=== PATIENT | male | born 1980 | race Caucasian/White ===

== ENCOUNTER → 2018-08-28 16:59 | Outpatient (CLI) | payer OTHER, SELFPAY ==
--- OUTSIDE RECORDS SUMMARY | 2018-10-10 16:20 | XMS RPT_ITS ---
:1980 Author Organization [facility] Care Team Providers Name Role Phone JOESPH CHERY (ABSORPTION PLANT OPERATOR HELPER) Attending Unavailable ISAIAH VARGAS Attending Unavailable RADHA GARG (DRESSAGE INSTRUCTOR) Attending Unavailable TALAMPAS, MARIELLA D Attending Unavailable TALAMPAS, MARIELLA D Attending Unavailable TALAMPAS, MARIELLA D Referring Unavailable TALAMPAS, MARIELLA D Referring Unavailable OLDER, OLGA (ABSORPTION PLANT OPERATOR HELPER) Attending Unavailable OLDER, OLGA (ABSORPTION PLANT OPERATOR HELPER) Attending Unavailable OLDER, OLGA (ABSORPTION PLANT OPERATOR HELPER) Referring Unavailable Bro, Jose Attending Unavailable Bro, Jose Referring Unavailable PROBLEMS PROBLEMS DATE TYPE CONDITION / CODE ATTENDING STATUS SOURCE 06/30/2018 Active Other custodial NA Active [facility] (current) drug [place] therapy / Repository Z79.899(ICD-10) 06/30/2018 Active Encounter for NA Active [facility] general adult [place] medical Repository examination without abnormal findings / Z00.00(ICD-10) 06/30/2018 Active Encounter for NA Active [facility] screening for [place] diabetes mellitus Repository / Z13.1(ICD-10) 06/30/2018 Active Encounter for NA Active [facility] screening for [place] lipoid disorders / Repository Z13.220(ICD-10) 09/07/2012 Active Obsessive-compulsi TALAMPAS, MARIELLA Active [facility] ve disorder, D [place] unspecified / Repository F42.9(ICD-10) 04/18/2018 Active Elevated TALAMPAS, MARIELLA Active [facility] blood-pressure D [place] reading, without Repository diagnosis of hypertension / R03.0(ICD-10) 04/18/2018 Active Episodic TALAMPAS, MARIELLA Active [facility] tension-type D [place] headache, not Repository intractable / G44.219(ICD-10) PROCEDURES PROCEDURES No Procedure Records FoundRESULTS RESULTS PROGRESS Observed: 09/19/2018 Status: COMPLETED Source: [place] 9:01 AM [facility] REPOSITORY HNO ID: [id number] Author: Olga (Solomon) Older Service: (none) Author Type: Nurse Practitioner Type: Progress Notes Filed: 09/19/2018 9:05 AM Note Text: CC: Patient presents with: 1 week follow up HPI Selene Snowden is a 38 year old male who presents today for one week follow-up for Shingles. Diagnosed last week and treated with Valtrex and Prednisone. Today patient reports rash has improved quite a bit and not as painful. Does report muscle tightness and cramping of the trapezius muscles. Tylenol helps a little with the pain but does not help with muscle tightness. REVIEW OF SYSTEMS See HPI PAST MEDICAL HISTORY Diagnosis Date - Hiatal hernia 08/14 - Obsessive compulsive disorder - Obstructive sleep apnea on CPAP - Sleep apnea PAST SURGICAL HISTORY Procedure Laterality Date - COLONOSCOPY 08/14 [place] - normal results - ENDOSCOPY PROC 08/14 [place] ALLERGIES Patient has no known allergies. MEDICATIONS busPIRone (BUSPAR) 10 mg tablet Take 1 tablet by mouth twice daily. As directed CPAP Initiate Auto PAP @ 5-20 cm of water with humidification. Mask (per patient preference) optional chin strap (if indicated) , filters, tubing, humidifier and lifetime supplies. (G47.33) SILVANO (obstructive sleep apnea) FLUoxetine HCl (PROZAC) 40 mg capsule Take 1 capsule by mouth once daily. fluticasone (FLONASE) 50 mcg/actuation nasal spray Use 1 Alicia in each nostril once daily. ibuprofen (ADVIL) 200 mg tablet Take 200 mg by mouth every 6 hours as needed. Lysine 1,000 mg Tab Take 1 tablet by mouth once daily. multivitamin tablet Take 1 tablet by mouth once daily. pantoprazole DR (PROTONIX) 40 mg tablet Take 1 tablet by mouth once daily. predniSONE (DELTASONE) 10 mg tablet Take 4 tabs daily for 3 days, then 2 tabs daily for 3 days, then 1 tab daily for 3 days with food. valACYclovir (VALTREX) 1 gram tab Take 1 tablet by mouth three times daily for 7 days. cyclobenzaprine (FLEXERIL) 10 mg tablet Take 1 tablet by mouth three times daily as needed. FAMILY HISTORY Problem Relation Age of Onset - Psychiatry Father schizoprhenia - Heart Failure Father - Psychiatry Mother - other (obesity [Other]) Mother - Diabetes Mother - Heart Mother atrial fibrillation - Colon Cancer Maternal Grandmother - Diabetes Maternal Grandmother - Cancer Maternal Uncle stomach and throat. - Diabetes Maternal Uncle Social History Substance Use Topics - Smoking status: Never Smoker - Smokeless tobacco: Never Used - Alcohol use Yes Comment: occassionally PHYSICAL EXAM BP 120/80 Pulse 77 Temp 36.5 ?C (97.7 ?F) (Temporal Artery) Resp 14 Wt 115.2 kg (254 lb) SpO2 97% BMI 36.45 kg/m? General Appearance: well appearing, in no acute distress, alert Skin: Left posterior shoulder and left chest wall with scattered dry appearing red papules. No drainage, crusting. No tenderness. Musculoskeletal: tenderness with palpation of bilateral trapezius muscles. ASSESSMENT/PLAN: 1. Herpes zoster without complication - ICD9: 053.9, ICD10: B02.9 (primary diagnosis) Normal healing. No alarm symptoms or exam findings. Continue with Tylenol as needed for pain Follow-up as needed if rash or pain worsens 2. Muscle cramping - ICD9: 729.82, ICD10: R25.2 Start Flexeril Follow-up in two weeks if pain persists or sooner if worsening Olga Burgos APRN.CNP Prescription instructions reviewed with patient as applicable. Potential red flag symptoms discussed with the patient. Reviewed appropriate action plan to take if red flag symptoms occur. Patient agreeable to treatment plan. ALDO BlackOV Observed: 09/19/2018 Status: COMPLETED Source: [place] 8:40 AM [facility] REPOSITORY Office Visit (INTMWS) SELENE SNOWDEN ([id number]) 1980 M Date Time Provider Department 09/19/18 8:40 AM OLGA BURGOS ([place]OM[place]) INTArtWS During your visit today, we recorded the following information about you: Temperature Pulse Respiration Blood pressure 97.7 degrees 77/minute 14/minute 120/80 Weight 115.2 kg Olga Older, MANAGER TRAFFIC.ABSORPTION PLANT OPERATOR HELPER 09/19/2018 9:05 AM Signed CC: Patient presents with: 1 week follow up HPI Selene Snowden is a 38 year old male who presents today for one week follow-up for Shingles. Diagnosed last week and treated with Valtrex and Prednisone. Today patient reports rash has improved quite a bit and not as painful. Does report muscle tightness and cramping of the trapezius muscles. Tylenol helps a little with the pain but does not help with muscle tightness. REVIEW OF SYSTEMS See HPI PAST MEDICAL HISTORY Diagnosis Date - Hiatal hernia 08/14 - Obsessive compulsive disorder - Obstructive sleep apnea on CPAP - Sleep apnea PAST SURGICAL HISTORY Procedure Laterality Date - COLONOSCOPY 08/14 [place] - normal results - ENDOSCOPY PROC 08/14 [place] ALLERGIES Patient has no known allergies. MEDICATIONS busPIRone (BUSPAR) 10 mg tablet Take 1 tablet by mouth twice daily. As directed CPAP Initiate Auto PAP @ 5-20 cm of water with humidification. Mask (per patient preference) optional chin strap (if indicated) , filters, tubing, humidifier and lifetime supplies. (G47.33) SILVANO (obstructive sleep apnea) FLUoxetine HCl (PROZAC) 40 mg capsule Take 1 capsule by mouth once daily. fluticasone (FLONASE) 50 mcg/actuation nasal spray Use 1 Alicia in each nostril once daily. ibuprofen (ADVIL) 200 mg tablet Take 200 mg by mouth every 6 hours as needed. Lysine 1,000 mg Tab Take 1 tablet by mouth once daily. multivitamin tablet Take 1 tablet by mouth once daily. pantoprazole DR (PROTONIX) 40 mg tablet Take 1 tablet by mouth once daily. predniSONE (DELTASONE) 10 mg tablet Take 4 tabs daily for 3 days, then 2 tabs daily for 3 days, then 1 tab daily for 3 days with food. valACYclovir (VALTREX) 1 gram tab Take 1 tablet by mouth three times daily for 7 days. cyclobenzaprine (FLEXERIL) 10 mg tablet Take 1 tablet by mouth three times daily as needed. FAMILY HISTORY Problem Relation Age of Onset - Psychiatry Father schizoprhenia - Heart Failure Father - Psychiatry Mother - other (obesity [Other]) Mother - Diabetes Mother - Heart Mother atrial fibrillation - Colon Cancer Maternal Grandmother - Diabetes Maternal Grandmother - Cancer Maternal Uncle stomach and throat. - Diabetes Maternal Uncle Social History Substance Use Topics - Smoking status: Never Smoker - Smokeless tobacco: Never Used - Alcohol use Yes Comment: occassionally PHYSICAL EXAM BP 120/80 Pulse 77 Temp 36.5 ?C (97.7 ?F) (Temporal Artery) Resp 14 Wt 115.2 kg (254 lb) SpO2 97% BMI 36.45 kg/m? General Appearance: well appearing, in no acute distress, alert Skin: Left posterior shoulder and left chest wall with scattered dry appearing red papules. No drainage, crusting. No tenderness. Musculoskeletal: tenderness with palpation of bilateral trapezius muscles. ASSESSMENT/PLAN: 1. Herpes zoster without complication - ICD9: 053.9, ICD10: B02.9 (primary diagnosis) Normal healing. No alarm symptoms or exam findings. Continue with Tylenol as needed for pain Follow-up as needed if rash or pain worsens 2. Muscle cramping - ICD9: 729.82, ICD10: R25.2 Start Flexeril Follow-up in two weeks if pain persists or sooner if worsening Olga Burgos APRN.[place] Prescription instructions reviewed with patient as applicable. Potential red flag symptoms discussed with the patient. Reviewed appropriate action plan to take if red flag symptoms occur. Patient agreeable to treatment plan. Olga Burgos APRN.CNP Referring Provider: OLGA BURGOS ([place]) [[id number]] Allergies As of Date: 09/19/2018 (No Known Allergies) Date Reviewed: 09/19/2018 Reviewed by: Briseyda Adams Teacher Vocational Training - Fully Assessed Reason for Visit: 1 week follow up [Other] Primary Visit Diagnosis:Herpes zoster without complication [B02.9] Other Visit Diagnosis:Muscle cramping [R25.2] Order(s):cyclobenzaprine (FLEXERIL) 10 mg tabletTake 1 tablet by mouth three times daily as needed.Disp: 21 tabletRfl: 0 Prescriptions as of 09/19/2018 Sig: BUSPIRONE 10 MG TABLET Take 1 tablet by mouth twice * CPAP Initiate Auto PAP @ 5- 20 cm o* FLUOXETINE 40 MG CAPSULE Take 1 capsule by mouth once * FLUTICASONE 50 MCG/ACTUATION * Use 1 Alicia in each nostril o* IBUPROFEN 200 MG TABLET Take 200 mg by mouth every 6 * LYSINE 1,000 MG TABLET Take 1 tablet by mouth once d* MULTIVITAMIN TABLET Take 1 tablet by mouth once d* PANTOPRAZOLE 40 MG TABLET,DEL* Take 1 tablet by mouth once d* PREDNISONE 10 MG TABLET Take 4 tabs daily for 3 days,* VALACYCLOVIR 1 GRAM TABLET Take 1 tablet by mouth three * CYCLOBENZAPRINE 10 MG TABLET Take 1 tablet by mouth three * Problem List As Of Date 09/19/2018 Noted Resolved OCD (obsessive compulsive disorder) [F42.9] INVALID FOR* Palpitations [R00.2] INVALID FOR* Chest pain [R07.9] INVALID FOR* More... SILVANO (obstructive sleep apnea) [G47.33] INVALID FOR* Anxiety [F41.9] INVALID FOR* Prescriptions ordered this encounter Disp Refills Start End CYCLOBENZAPRINE 10 MG TABLET 21 t* 0 09/19/2018 Route: ORAL Sig: Take 1 tablet by mouth three times daily as needed. Encounter Status:Closed by OLGA BURGOS CNP on 09/19/18 PROGRESS Observed: 09/12/2018 Status: COMPLETED Source: [place] 8:53 AM [facility] REPOSITORY O ID: [id number] Author: Olga Burgos Service: (none) Author Type: Nurse Practitioner Type: Progress Notes Filed: 09/12/2018 9:53 AM Note Text: CC: Patient presents with: rash left shoulder and left side of chest: x 3 days HPI Selene Snowden is a 38 year old male who presents today for rash. Duration: first noticed Tuesday evening Location: left anterior and posterior shoulder Itching or Pain: Itchy and burning pain . Ever had a rash like this before: No. Changes in soaps or detergents: No. New medications or foods: . Exposure to others with rash: No. Environmental exposures: No Environmental/seasonal allergies: No Fever, chills, fatigue, joint pain/swelling: A few days prior to rash starting he had chills and diarrhea, has been feeling fatigued ever since. Treatments: Nothing History of skin problems such as psoriasis, eczema, hives: No. PAST MEDICAL HISTORY Diagnosis Date - Hiatal hernia 08/14 - Obsessive compulsive disorder - Obstructive sleep apnea on CPAP - Sleep apnea PAST SURGICAL HISTORY Procedure Laterality Date - COLONOSCOPY 08/14 [place] - normal results - ENDOSCOPY PROC 08/14 [place] ALLERGIES Patient has no known allergies. MEDICATIONS busPIRone (BUSPAR) 10 mg tablet Take 1 tablet by mouth twice daily. As directed CPAP Initiate Auto PAP @ 5-20 cm of water with humidification. Mask (per patient preference) optional chin strap (if indicated) , filters, tubing, humidifier and lifetime supplies. (G47.33) SILVANO (obstructive sleep apnea) FLUoxetine HCl (PROZAC) 40 mg capsule Take 1 capsule by mouth once daily. fluticasone (FLONASE) 50 mcg/actuation nasal spray Use 1 Alicia in each nostril once daily. ibuprofen (ADVIL) 200 mg tablet Take 200 mg by mouth every 6 hours as needed. Lysine 1,000 mg Tab Take 1 tablet by mouth once daily. multivitamin tablet Take 1 tablet by mouth once daily. pantoprazole DR (PROTONIX) 40 mg tablet Take 1 tablet by mouth once daily. FAMILY HISTORY Problem Relation Age of Onset - Psychiatry Father schizoprhenia - Heart Failure Father - Psychiatry Mother - other (obesity [Other]) Mother - Diabetes Mother - Heart Mother atrial fibrillation - Colon Cancer Maternal Grandmother - Diabetes Maternal Grandmother - Cancer Maternal Uncle stomach and throat. - Diabetes Maternal Uncle Social History Substance Use Topics - Smoking status: Never Smoker - Smokeless tobacco: Never Used - Alcohol use Yes Comment: occassionally REVIEW OF SYSTEMS See HPI PHYSICAL EXAM BP 130/80 Pulse 88 Temp 36.2 ?C (97.2 ?F) (Temporal Artery) Resp 14 Wt 116.1 kg (256 lb) SpO2 96% BMI 36.73 kg/m? General Appearance: well appearing, in no acute distress, alert Skin: red papules and vesicles on an erythematous base clustered in a dermatomal distribution on the left posterior shoulder to the left anterior chest/shoulder (see image) ASSESSMENT/PLAN: 1. Herpes zoster without complication - ICD9: 053.9, ICD10: B02.9 I discussed disease etiology, clinical symptoms, contagiousness and treatment options with patient. I also discussed the concept of post herpetic neuralgia. - Valtrex 1 gm TID for 7 days. - Prednisone burst with taper over 9 days - Advised pt to avoid women, young children, immunocompromised people, elderly residential patients while the vesicles are still unroofed and crusting over - Follow-up in one week or sooner as needed for worsening symptoms Prescription instructions reviewed with patient as applicable. Potential red flag symptoms discussed with the patient. Reviewed appropriate action plan to take if red flag symptoms occur. Patient agreeable to treatment plan. ALDO BlackOV Observed: 09/12/2018 Status: COMPLETED Source: [place] 8:40 AM [facility] REPOSITORY Office Visit (INTMWS) SNOWDENSELENE ([id number]) 1980 M Date Time Provider Department 09/12/18 8:40 AM OLGA BURGOS ([place]) INTMWS During your visit today, we recorded the following information about you: Temperature Pulse Respiration Blood pressure 97.2 degrees 88/minute 14/minute 130/80 Weight 116.1 kg Olga Burgos APRN.CNP 09/12/2018 9:53 AM Signed CC: Patient presents with: rash left shoulder and left side of chest: x 3 days HPI Selene Snowden is a 38 year old male who presents today for rash. Duration: first noticed Tuesday evening Location: left anterior and posterior shoulder Itching or Pain: Itchy and burning pain . Ever had a rash like this before: No. Changes in soaps or detergents: No. New medications or foods: . Exposure to others with rash: No. Environmental exposures: No Environmental/seasonal allergies: No Fever, chills, fatigue, joint pain/swelling: A few days prior to rash starting he had chills and diarrhea, has been feeling fatigued ever since. Treatments: Nothing History of skin problems such as psoriasis, eczema, hives: No. PAST MEDICAL HISTORY Diagnosis Date - Hiatal hernia 08/14 - Obsessive compulsive disorder - Obstructive sleep apnea on CPAP - Sleep apnea PAST SURGICAL HISTORY Procedure Laterality Date - COLONOSCOPY 08/14 [place] - normal results - ENDOSCOPY PROC 08/14 [place] ALLERGIES Patient has no known allergies. MEDICATIONS busPIRone (BUSPAR) 10 mg tablet Take 1 tablet by mouth twice daily. As directed CPAP Initiate Auto PAP @ 5-20 cm of water with humidification. Mask (per patient preference) optional chin strap (if indicated) , filters, tubing, humidifier and lifetime supplies. (G47.33) SILVANO (obstructive sleep apnea) FLUoxetine HCl (PROZAC) 40 mg capsule Take 1 capsule by mouth once daily. fluticasone (FLONASE) 50 mcg/actuation nasal spray Use 1 Alicia in each nostril once daily. ibuprofen (ADVIL) 200 mg tablet Take 200 mg by mouth every 6 hours as needed. Lysine 1,000 mg Tab Take 1 tablet by mouth once daily. multivitamin tablet Take 1 tablet by mouth once daily. pantoprazole DR (PROTONIX) 40 mg tablet Take 1 tablet by mouth once daily. FAMILY HISTORY Problem Relation Age of Onset - Psychiatry Father schizoprhenia - Heart Failure Father - Psychiatry Mother - other (obesity [Other]) Mother - Diabetes Mother - Heart Mother atrial fibrillation - Colon Cancer Maternal Grandmother - Diabetes Maternal Grandmother - Cancer Maternal Uncle stomach and throat. - Diabetes Maternal Uncle Social History Substance Use Topics - Smoking status: Never Smoker - Smokeless tobacco: Never Used - Alcohol use Yes Comment: occassionally REVIEW OF SYSTEMS See HPI PHYSICAL EXAM BP 130/80 Pulse 88 Temp 36.2 ?C (97.2 ?F) (Temporal Artery) Resp 14 Wt 116.1 kg (256 lb) SpO2 96% BMI 36.73 kg/m? General Appearance: well appearing, in no acute distress, alert Skin: red papules and vesicles on an erythematous base clustered in a dermatomal distribution on the left posterior shoulder to the left anterior chest/shoulder (see image) ASSESSMENT/PLAN: 1. Herpes zoster without complication - ICD9: 053.9, ICD10: B02.9 I discussed disease etiology, clinical symptoms, contagiousness and treatment options with patient. I also discussed the concept of post herpetic neuralgia. - Valtrex 1 gm TID for 7 days. - Prednisone burst with taper over 9 days - Advised pt to avoid women, young children, immunocompromised people, elderly residential patients while the vesicles are still unroofed and crusting over - Follow-up in one week or sooner as needed for worsening symptoms Prescription instructions reviewed with patient as applicable. Potential red flag symptoms discussed with the patient. Reviewed appropriate action plan to take if red flag symptoms occur. Patient agreeable to treatment plan. Olga Burgos, MANAGER TRAFFIC.ABSORPTION PLANT OPERATOR HELPER Referring Provider: SELF [[id number]] Allergies As of Date: 09/12/2018 (No Known Allergies) Date Reviewed: 09/12/2018 Reviewed by: Briseyda Adams Teacher Vocational Training - Fully Assessed Reason for Visit: rash left shoulder and left side of chest [Other] Cmt: x 3 days Primary Visit Diagnosis:Herpes zoster without complication [B02.9] Order(s):valACYclovir (VALTREX) 1 gram tabTake 1 tablet by mouth three times daily for 7 days.Disp: 21 tabletRfl: 0 predniSONE (DELTASONE) 10 mg tabletTake 4 tabs daily for 3 days, then 2 tabs daily for 3 days, then 1 tab daily for 3 days with food.Disp: 21 tabletRfl: 0 Prescriptions as of 09/12/2018 Sig: BUSPIRONE 10 MG TABLET Take 1 tablet by mouth twice * CPAP Initiate Auto PAP @ 5- 20 cm o* FLUOXETINE 40 MG CAPSULE Take 1 capsule by mouth once * FLUTICASONE 50 MCG/ACTUATION * Use 1 Alicia in each nostril o* IBUPROFEN 200 MG TABLET Take 200 mg by mouth every 6 * LYSINE 1,000 MG TABLET Take 1 tablet by mouth once d* MULTIVITAMIN TABLET Take 1 tablet by mouth once d* PANTOPRAZOLE 40 MG TABLET,DEL* Take 1 tablet by mouth once d* PREDNISONE 10 MG TABLET Take 4 tabs daily for 3 days,* VALACYCLOVIR 1 GRAM TABLET Take 1 tablet by mouth three * Problem List As Of Date 09/12/2018 Noted Resolved OCD (obsessive compulsive disorder) [F42.9] INVALID FOR* Palpitations [R00.2] INVALID FOR* Chest pain [R07.9] INVALID FOR* More... SILVANO (obstructive sleep apnea) [G47.33] INVALID FOR* Anxiety [F41.9] INVALID FOR* Prescriptions ordered this encounter Disp Refills Start End VALACYCLOVIR 1 GRAM TABLET 21 t* 0 09/12/2018 09/19/2018 Route: ORAL Sig: Take 1 tablet by mouth three times daily for 7 days. PREDNISONE 10 MG TABLET 21 t* 0 09/12/2018 09/21/2018 Sig: Take 4 tabs daily for 3 days, then 2 tabs daily for 3 days, then 1 tab daily for 3 days with food. Annotated image of DERM BODY last updated by Olga (Solomon) Older on 09/12/2018 9:50 AM Encounter Status:Closed by OLGA BURGOS CNP on 09/12/18 Observed: 08/28/2018 Status: F Source: [place] CULTURE, NOSE 6:10 PM [facility] REPOSITORY Gram Stain Gram Stain 2+ White Blood Cells 2+ Gram positive cocci in clusters Nasoph. Cult Amoxicillin/Clavulanic Acid and Oral Cephlosporins are the drugs of choice, as most isolates are penicillin resistant. Trimeth/Sulfa (Otitis), Ciprofloxacin, Ofloxacin and Erythromycin are alternate choices. ORGANISM 1: Moraxella(Hemal.)Catarrhalis Amount Growth 3+ Beta Lactamase Positive Performed By: #### [id number] #### [facility] [address] [place], [address] PROGRESS Observed: 08/07/2018 Status: COMPLETED Source: [place] 3:51 PM [facility] REPOSITORY HNO ID: [id number] Author: Charu Joyner Provider Service: (none) Author Type: Physician Type: Progress Notes Filed: 08/07/2018 10:54 AM Note Text: null (CCF:Not available [id number]) Visit Summary for Selene Snowden - Gender: Male - Date of : 1980 ( ) Date: [id number] - Duration: 3 minutes Patient: Selene Snowden Provider: Nehemiah Floyd Patient Contact Information [address] [facility] [facility] [id number] [phone] Visit Topics 10 days of sinus/cold issues now crackling in ears due to flight [Added By: Self - 2018-08-07] Triage Questions Please provide your current address. We need this on file in case of a medical emergency.Answer [[address] [place] [address]] Conversation Transcripts [Notification] You are connected with Nehemiah Floyd, Family Physician.[Notification] Selene Snowden is located in [place].[Notification] Selene Snowden has shared health history...[Notification] Nehemiah Floyd has added a diagnosis/procedure code (see the Visit Notes tab).[Notification] Nehemiah Floyd has added a diagnosis/procedure code (see the Visit Notes tab).[Notification] Nehemiah Floyd has added a prescription (see the Visit Notes tab). Diagnosis Acute sinusitis, unspecified Value: J01.90 Code: ICD-10-CM Procedures Value: [id number] Code: CPT-4 ONLINE E/M BY PHYS/QHP Medications Prescribed Augmentin Dose : 1 tablet Strength : 875-125 mg Route : oral Frequency : every 12 hours. Refills : 0 Instructions to the Pharmacist : Substitutions allowed BuSpar Frequency : Protonix Frequency : Prozac Frequency : Provider Notes We strongly encourage you to share the following record of today's visit with your primary care physician. Contact phone number:Mode of Communication: Video HPI: The patient has been having sinus pain, post nasal drip, discolored mucous for more than a week. No fever, no swollen glands or sore throat. There is a moderate cough but no shortness of breath. The patient has been achy and tired. PMH: Gastro-esophageal reflux disease without [id number] disorder, [id number] seasonal allergic rhinitisPSH: NoneSmoking HX: NonsmokerMeds: Lisine, MVNBuSpar----Protonix----ProzacAllergies: NKMAPE: Gen: Patient is well appearing and in no acute distress Eyes: Normal appearingNose: CongestedSinuses: Sinus tenderness bilaterallyPharynx: Normal appearing tonsils and posterior pharynxResp: No respiratory distressAssessment: Sinusitis Diagnosis Code: acute sinusitis NOS J01.90 Plan: 1.Medication as described below. 2.Discussed options and precautions3.Recommend nasal saline, Neti Pot, plain Mucinex4.Sleeping with head/chest elevated can help with sinus drainageAntibiotic indication: Continued symptoms over 1 weekAntibiotic choice: Augmentin 875mg 1 tab twice daily for 7 daysFollow up:1.Follow up in 5-7 days if not improving. Discussed precautions. 2.If there are any questions or problems with the prescription, call [phone] anytime for assistance. 3.Please re-connect for another online visit or see an in-person provider should your symptoms worsen or not improving 5-7days. 4.Taking a probiotic (either in pill form or by eating yogurt that contains probiotics) while using antibiotics can help prevent some of the troublesome side effects that antibiotics can sometimes cause.5.Please print a copy of this note and send it to your regular doctor, or take it to your next visit so it may be included in your medical record. Patient voiced understanding and agrees to plan.Please see your PCP on an annual basis Electronically signed by: Nehemiah Floyd( ) CBC Collected: 06/30/2018 Status: F Source: [place] 9:20 AM [facility] REPOSITORY TYPE CODE TESTS RESULT OUT OF REFERENCE UNITS RANGE LAB WBC 3.70-11.00 k/uL WBC 6.02 LAB RBC 4.20-6.00 m/uL RBC 5.20 LAB HGB 13.0-17.0 g/dL Hemoglobin 15.3 LAB HCT 39.0-51.0 % Hematocrit 46.0 LAB MCV 80.0-100.0 fL MCV 88.5 LAB MCH 26.0-34.0 pG MCH 29.4 LAB MCHC 30.5-36.0 g/dL MCHC 33.3 LAB RDWCV 11.5-15.0 % RDW-CV 12.5 LAB PLTCT 150-400 k/uL Platelet Count 249 LAB MPV 9.0-12.7 fL MPV 9.6 LAB ABSNUC <0.01 k/uL Absolute nRBC <0.01 Performed By: #### CBC, CMP, LIPB, MG1 #### [facility] [address] [address] COMP METABOLIC PANEL Collected: 06/30/2018 Status: F Source: [place] 9:20 AM [facility] REPOSITORY TYPE CODE TESTS RESULT OUT OF REFERENCE UNITS RANGE LAB TP 6.3-8.0 g/dL Protein, Total 7.0 LAB ALB 3.9-4.9 g/dL Albumin 4.5 LAB CA 8.5-10.2 mg/dL Calcium, Total 9.6 LAB TBIL 0.2-1.3 mg/dL Bilirubin, Total 0.7 LAB ALKP 38-113 U/L Alkaline Phosphatase 82 LAB AST 14-40 U/L AST 38 LAB GLU 74-99 mg/dL Glucose 79 Result Comment: The [place] Diabetes Association (ADA) provides guidance for cutoff values for fasting glucose and random glucose. The ADA defines fasting as no caloric intake for at least 8 hours. Fas ting plasma glucose results between 100 to 125 mg/dL indicate increased risk for diabetes (prediabetes). Fasting plasma glucose results greater than or equal to 126 mg/dL meet the criteria for diagnosis of diabetes. In the absence of unequivocal hyperglycemia, results should be confirmed by repeat testing. In a patient with classic symptoms of hyperglycemia or hyperglycemic crisis, random plasma glucose results greater than or equal to 200 mg/dL meet the criteria for diagnosis of diabetes. Reference: Standards of Medical Care in Diabetes 2016, [place] Diabetes Association. Diabetes Care. 2016.39(Suppl 1). LAB BUN 9-24 mg/dL BUN 12 LAB CRET 0.73-1.22 mg/dL Creatinine 1.14 LAB NA 136-144 mmol/L Sodium 138 LAB K 3.7-5.1 mmol/L Potassium High 5.2 LAB CL 97-105 mmol/L Chloride 101 LAB CO2 22-30 mmol/L CO2 24 LAB AGAP 9-18 mmol/L Anion Gap 13 LAB ALT 10-54 U/L ALT 44 LAB GFRAA eGFR- Amer. >60 LAB GFRNAA . eGFR-All Other Races >60 Result Comment: eGFR (Estimated GFR) Units of measure: mL/min/1.73 meters squared eGFR is derived from the reexpressed MDRD Study equation using the following parameters: serum creatinine, age, gender and race. The creatinine assay has been calibrated to be traceable to IDMS. An eGFR <60 mL/min/1.73m2 for >3 months is consistent with chronic kidney disease. Refer to KDOQI guidelines for clinical interpretation. In patients with unstable renal function, e.g. those with acute kidney injury, the eGFR may not accurately reflect actual GFR. Performed By: #### CBC, CMP, LIPB, MG1 #### [facility] [address] [place], [place] [address] LIPID PANEL, BASIC Collected: 06/30/2018 Status: F Source: [place] 9:20 AM [facility] REPOSITORY TYPE CODE TESTS RESULT OUT OF REFERENCE UNITS RANGE LAB CHOL <200 mg/dL Cholesterol 191 Result Comment: <200 mg/dL, Desirable 200-239 mg/dL, Borderline high >239 mg/dL, High LAB TRIGLY <150 mg/dL Triglyceride High 182 Result Comment: <150 mg/dL, Normal 150-199 mg/dL, Borderline high 200-499 mg/dL, High >499 mg/dL, Very high LAB HDL >39 mg/dL HDL-Cholesterol Low 38 Result Comment: 40-59 mg/dL, Acceptable >59 mg/dL, High: Negative risk factor for coronary heart disease <40 mg/dL, Low: Positive risk factor for coronary heart disease LAB LDL <100 mg/dL LDL-Cholesterol High 117 Result Comment: <100 mg/dL, Optimal 100-129 mg/dL, Near optimal/above optimal 130-159 mg/dL, Borderline high 160-189 mg/dL, High >189 mg/dL, Very high Secondary prevention optimal LDL Cholesterol levels are recommended to be < 70 mg/dL LAB NONHDL <130 mg/dL Non HDL High Cholesterol 153 Result Comment: <130 mg/dL, Optimal 130-159 mg/dL, Near optimal/above optimal 160-189 mg/dL, Borderline high 190-219 mg/dL, High >219 mg/dL, Very high Secondary prevention optimal non HDL Cholesterol levels are recommended to be < 100 mg/dL LAB FT hrs Fasting Time 11 LAB VLDL <30 mg/dL High VLDL Cholesterol 36 LAB TCHDL <5.10 TC:HDL Ratio 5.03 LAB LDLHDL <2.54 High LDL:HDL Ratio 3.08 Result Comment: Reference: 1. National Cholesterol Education Program ATP III Guideline At-A-Glance Quick Desk Reference: National Heart, Lung, and Blood [place]. National Institutes of Health. 2001: NIH Publication No. 01-3305. 2. An International Atherosclerosis Society position paper: global recommendations for the management of dyslipidemia: executive summary, Atherosclerosis. 2014: 232(2):410-413. Performed By: #### CBC, CMP, LIPB, MG1 #### [facility] [employer] [address] [place], [place] [address] MAGNESIUM Collected: 06/30/2018 Status: F Source: [place] 9:20 AM [facility] REPOSITORY TYPE CODE TESTS RESULT OUT OF REFERENCE UNITS RANGE LAB MG 1.7-2.3 mg/dL Magnesium 2.1 Performed By: #### CBC, CMP, LIPB, MG1 #### [facility] [employer] [address] [place], [place] [address] PROGRESS Observed: 06/29/2018 Status: COMPLETED Source: [place] 3:11 PM [facility] [place] REPOSITORY HNO ID: [id number] Author: Mariella Hall Service: (none) Author Type: Physician Type: Progress Notes Filed: 07/16/2018 5:54 PM Note Text: Patient presents with: F/U 3 months SUBJECTIVE: Selene Snowden is a 38 year old year old gentleman here today for 3 month follow up appointment for review of medical conditions. Doing stretches for neck--helping for headaches. Buspar helping some for anxiety. Form to get discount for insurance given. Needs labs. Doing well on CPAP for SILVANO. Uses nightly. PAST MEDICAL HISTORY Diagnosis Date - Hiatal hernia 08/14 - Obsessive compulsive disorder - Obstructive sleep apnea on CPAP - Sleep apnea Current Outpatient Prescriptions: busPIRone (BUSPAR) 10 mg tablet Take 1 tablet by mouth twice daily. As directed pantoprazole DR (PROTONIX) 40 mg tablet Take 1 tablet by mouth once daily. FLUoxetine HCl (PROZAC) 40 mg capsule Take 1 capsule by mouth once daily. CPAP Initiate Auto PAP @ 5-20 cm of water with humidification. Mask (per patient preference) optional chin strap (if indicated) , filters, tubing, humidifier and lifetime supplies. (G47.33) SILVANO (obstructive sleep apnea) multivitamin tablet Take 1 tablet by mouth once daily. ibuprofen (ADVIL) 200 mg tablet Take 200 mg by mouth every 6 hours as needed. Lysine 1,000 mg Tab Take 1 tablet by mouth once daily. fluticasone (FLONASE) 50 mcg/actuation nasal spray Use 1 Alicia in each nostril once daily. (Patient not taking: Reported on 04/18/2018 ) No current facility-administered medications for this visit. OBJECTIVE: BP 126/88 Pulse 72 Resp 16 Ht 177.8 cm (5' 10) Wt 117 kg (258 lb) BMI 37.02 kg/m? Patient is alert, oriented times 3, no apparent distress, affect is bright, reactive. Last 5 Encounter BP Readings: Date: BP: 06/29/2018 126/88 04/18/2018 130/82 03/28/2018 118/83[BP REECE[ 03/16/2018 127/89 11/30/2017 120/84 Last 5 Encounter Wt Readings: Date: Wt: 06/29/2018 117 kg (258 lb) 04/18/2018 116.6 kg (257 lb) 03/28/2018 112.9 kg (249 lb) 03/16/2018 112.9 kg (249 lb) 11/30/2017 111.1 kg (245 lb) 06/29/18 1441 06/29/18 1520 BP: 126/88 118/76 Pulse: 72 Resp: 16 Weight: 117 kg (258 lb) Height: 177.8 cm (5' 10) Heart: Regular rate, rhythm, no murmurs, gallops, rubs. Lungs: Clear to auscultation, bilaterally, breathing non labored. Ext: No cyanosis, clubbing, or edema. ASSESSMENT AND PLAN: Encounter Diagnosis ICD-10-CM 1. SILVANO (obstructive sleep apnea) G47.33 2. Other headache syndrome G44.89 doing well 3. Anxiety F41.9 4. Class 2 obesity due to excess calories without serious comorbidity with body mass index (BMI) of 37.0 to 37.9 in adult E66.09 Z68.37 5. Routine medical exam Z00.00 COMP METABOLIC PANEL LIPID PANEL BASIC CBC MAGNESIUM BLD 6. Encounter for screening examination for impaired glucose regulation and diabetes mellitus Z13.1 COMP METABOLIC PANEL 7. Screening, lipid Z13.220 LIPID PANEL BASIC 8. Encounter for long-term (current) use of medications Z79.899 COMP METABOLIC PANEL CBC MAGNESIUM BLD Above issues addressed with patient. Patient involved in shared decision making for management of medical issues. History and medications reviewed. Epic updated as needed Refills taken care of and meds adjusted as indicated after reviewed history, exam and labs. Health Maintenance reviewed. Updated record and/or ordered tests as recorded. Encouraged on efforts at healthy diet and regular exercise and adequate sleep. Needs to keep working on diet and exercise with lifestyle changes for effective weight loss as well as prevention of DM, and control of BP and lipids. Doing well with current management of above issues. Continue present meds. Continue present management. Further evaluation and treatment as indicated. Labs ordered for screening for his insurance. Further evaluation and treatment as indicated. The majority of the visit was spent counseling and/or coordinating care for the patient. Jmyh-mz-ajji time was at least 20 minutes. Mariella Hall MD CNOV Observed: 06/29/2018 Status: COMPLETED Source: [place] 2:20 PM [facility] REPOSITORY Office Visit (INTMWS) SELENE SNOWDEN ([id number]) 1980 M Date Time Provider Department 06/29/18 2:20 PM MARIELLA HALL INTMIKE During your visit today, we recorded the following information about you: Pulse Respiration Blood pressure Weight 72/minute 16/minute 118/76 117 kg Height 1.778 m Mariella Hall MD 07/16/2018 5:54 PM Signed Patient presents with: F/U 3 months SUBJECTIVE: Selene Snowden is a 38 year old year old gentleman here today for 3 month follow up appointment for review of medical conditions. Doing stretches for neck--helping for headaches. Buspar helping some for anxiety. Form to get discount for insurance given. Needs labs. Doing well on CPAP for SILVANO. Uses nightly. PAST MEDICAL HISTORY Diagnosis Date - Hiatal hernia 08/14 - Obsessive compulsive disorder - Obstructive sleep apnea on CPAP - Sleep apnea Current Outpatient Prescriptions: busPIRone (BUSPAR) 10 mg tablet Take 1 tablet by mouth twice daily. As directed pantoprazole DR (PROTONIX) 40 mg tablet Take 1 tablet by mouth once daily. FLUoxetine HCl (PROZAC) 40 mg capsule Take 1 capsule by mouth once daily. CPAP Initiate Auto PAP @ 5-20 cm of water with humidification. Mask (per patient preference) optional chin strap (if indicated) , filters, tubing, humidifier and lifetime supplies. (G47.33) SILVANO (obstructive sleep apnea) multivitamin tablet Take 1 tablet by mouth once daily. ibuprofen (ADVIL) 200 mg tablet Take 200 mg by mouth every 6 hours as needed. Lysine 1,000 mg Tab Take 1 tablet by mouth once daily. fluticasone (FLONASE) 50 mcg/actuation nasal spray Use 1 Alicia in each nostril once daily. (Patient not taking: Reported on 04/18/2018 ) No current facility-administered medications for this visit. OBJECTIVE: BP 126/88 Pulse 72 Resp 16 Ht 177.8 cm (5' 10) Wt 117 kg (258 lb) BMI 37.02 kg/m? Patient is alert, oriented times 3, no apparent distress, affect is bright, reactive. Last 5 Encounter BP Readings: Date: BP: 06/29/2018 126/88 04/18/2018 130/82 03/28/2018 118/83[BP REECE[ 03/16/2018 127/89 11/30/2017 120/84 Last 5 Encounter Wt Readings: Date: Wt: 06/29/2018 117 kg (258 lb) 04/18/2018 116.6 kg (257 lb) 03/28/2018 112.9 kg (249 lb) 03/16/2018 112.9 kg (249 lb) 11/30/2017 111.1 kg (245 lb) 06/29/18 1441 06/29/18 1520 BP: 126/88 118/76 Pulse: 72 Resp: 16 Weight: 117 kg (258 lb) Height: 177.8 cm (5' 10) Heart: Regular rate, rhythm, no murmurs, gallops, rubs. Lungs: Clear to auscultation, bilaterally, breathing non labored. Ext: No cyanosis, clubbing, or edema. ASSESSMENT AND PLAN: Encounter Diagnosis ICD-10-CM 1. SILVANO (obstructive sleep apnea) G47.33 2. Other headache syndrome G44.89 doing well 3. Anxiety F41.9 4. Class 2 obesity due to excess calories without serious comorbidity with body mass index (BMI) of 37.0 to 37.9 in adult E66.09 Z68.37 5. Routine medical exam Z00.00 COMP METABOLIC PANEL LIPID PANEL BASIC CBC MAGNESIUM BLD 6. Encounter for screening examination for impaired glucose regulation and diabetes mellitus Z13.1 COMP METABOLIC PANEL 7. Screening, lipid Z13.220 LIPID PANEL BASIC 8. Encounter for long-term (current) use of medications Z79.899 COMP METABOLIC PANEL CBC MAGNESIUM BLD Above issues addressed with patient. Patient involved in shared decision making for management of medical issues. History and medications reviewed. Epic updated as needed Refills taken care of and meds adjusted as indicated after reviewed history, exam and labs. Health Maintenance reviewed. Updated record and/or ordered tests as recorded. Encouraged on efforts at healthy diet and regular exercise and adequate sleep. Needs to keep working on diet and exercise with lifestyle changes for effective weight loss as well as prevention of DM, and control of BP and lipids. Doing well with current management of above issues. Continue present meds. Continue present management. Further evaluation and treatment as indicated. Labs ordered for screening for his insurance. Further evaluation and treatment as indicated. The majority of the visit was spent counseling and/or coordinating care for the patient. Ywbt-dx-grfr time was at least 20 minutes. Mariella Hall MD Referring Provider: MARIELLA HALL [[id number]] Allergies As of Date: 06/29/2018 (No Known Allergies) Date Reviewed: 06/29/2018 Reviewed by: Leydi Hurst LPN - Fully Assessed Reason for Visit: F/U 3 months [1176] Primary Visit Diagnosis:SILVANO (obstructive sleep apnea) [G47.33] Other Visit Diagnoses:Other headache syndrome [G44.89] Comment:doing well Anxiety [F41.9] Class 2 obesity due to excess calories without serious comorbidity with body mass index (BMI) of 37.0 to 37.9 in adult [E66.09, Z68.37] Routine medical exam [Z00.00] Encounter for screening examination for impaired glucose regulation and diabetes mellitus [Z13.1] Screening, lipid [Z13.220] Encounter for long-term (current) use of medications [Z79.899] Order(s):COMP METABOLIC PANEL [SQCMP] Order #: [id number] FUTURE LIPID PANEL BASIC [SQLIPB] Order #: [id number] FUTURE busPIRone (BUSPAR) 10 mg tabletTake 1 tablet by mouth twice daily. As directedDisp: 120 tabletRfl: 5 FLUoxetine HCl (PROZAC) 40 mg capsuleTake 1 capsule by mouth once daily.Disp: 60 capsuleRfl: [address] (PROTONIX) 40 mg tabletTake 1 tablet by mouth once daily.Disp: 60 tabletRfl: 5 CBC [SQCBC] Order #: [id number] FUTURE MAGNESIUM BLD [SQMG1] Order #: [id number] FUTURE Prescriptions as of 06/29/2018 Sig: BUSPIRONE 10 MG TABLET Take 1 tablet by mouth twice * FLUOXETINE 40 MG CAPSULE Take 1 capsule by mouth once * PANTOPRAZOLE 40 MG TABLET,DEL* Take 1 tablet by mouth once d* CPAP Initiate Auto PAP @ 5- 20 cm o* MULTIVITAMIN TABLET Take 1 tablet by mouth once d* IBUPROFEN 200 MG TABLET Take 200 mg by mouth every 6 * LYSINE 1,000 MG TABLET Take 1 tablet by mouth once d* FLUTICASONE 50 MCG/ACTUATION * Use 1 Alicia in each nostril o* Patient not taking: Reported on 04/18/2018 Problem List As Of Date 06/29/2018 Noted Resolved OCD (obsessive compulsive disorder) [F42.9] INVALID FOR* Palpitations [R00.2] INVALID FOR* Chest pain [R07.9] INVALID FOR* More... SILVANO (obstructive sleep apnea) [G47.33] INVALID FOR* Prescriptions ordered this encounter Disp Refills Start End BUSPIRONE 10 MG TABLET 120 * 5 06/29/2018 Route: ORAL Sig: Take 1 tablet by mouth twice daily. As directed FLUOXETINE 40 MG CAPSULE 60 c* 5 06/29/2018 Route: ORAL Sig: Take 1 capsule by mouth once daily. PANTOPRAZOLE 40 MG TABLET,DELAYED RE* 60 t* 5 06/29/2018 Route: ORAL Sig: Take 1 tablet by mouth once daily. Medications Discontinued During This Encounter busPIRone (BUSPAR) 10 mg tablet 60 t* 5 04/18/2018 06/29/2018 Cmt: Intentional dose change Route: ORAL Sig: Take 1 tablet by mouth twice daily. As directed Disc: Reason for discontinue is not on file. FLUoxetine HCl (PROZAC) 40 mg capsule 90 c* 3 10/20/2017 06/29/2018 Cmt: This prescription was filled on 10/18/2017. Any refills authorized will be placed on file. Sig: Take 1 capsule by mouth once daily. Disc: Reason for discontinue is not on file. pantoprazole DR (PROTONIX) 40 mg tab* 60 t* 5 04/18/2018 06/29/2018 Cmt: if insurance does not cover 60 days supply at a time on this, okay 30 days with 11 RF Route: ORAL Sig: Take 1 tablet by mouth once daily. Disc: Reason for discontinue is not on file. Disposition: Return in about 6 months (around 12/27/2018) for 6 months follow up. Follow-up and Disposition History Recorded Encounter Status:Closed by MARIELLA HALL MD on 07/16/18 PROGRESS Observed: 04/18/2018 Status: COMPLETED Source: [place] 6:[facility] PM [facility] RE[facility] HNO ID: [id number] Author: Mariella Hall Service: (none) Author Type: Physician Type: Progress Notes Filed: 04/26/2018 11:13 PM Note Text: Patient presents with: Recheck Headaches SUBJECTIVE: Selene Snowden is a 38 year old year old gentleman here today for follow up appointment for review of medical conditions. BPs with some 90's but most 120 to to 130's over 80's. One 124/74. The past week staying in 120 to 130's mostly with just on Tuesday 140/96. Sensitivity left forehead area correlated with massive headaches and high BP. Extension exercises prevent the massive headaches. Still has the sensitivity. Once a day ibuprofen 800mg now with doing extension exercises. Takes when headaches start. Labs in August through work. PAST MEDICAL HISTORY Diagnosis Date - Hiatal hernia 08/14 - Obsessive compulsive disorder - Obstructive sleep apnea - Sleep apnea Current Outpatient Prescriptions: busPIRone (BUSPAR) 5 mg tablet Two to three times per day. pantoprazole sodium (PROTONIX ORAL) Take 1 tablet by mouth once daily. FLUoxetine HCl (PROZAC) 40 mg capsule Take 1 capsule by mouth once daily. CPAP Initiate Auto PAP @ 5-20 cm of water with humidification. Mask (per patient preference) optional chin strap (if indicated) , filters, tubing, humidifier and lifetime supplies. (G47.33) SILVANO (obstructive sleep apnea) multivitamin tablet Take 1 tablet by mouth once daily. ibuprofen (ADVIL) 200 mg tablet Take 200 mg by mouth every 6 hours as needed. Lysine 1,000 mg Tab Take 1 tablet by mouth once daily. fluticasone (FLONASE) 50 mcg/actuation nasal spray Use 1 Alicia in each nostril once daily. (Patient not taking: Reported on 04/18/2018 ) No current facility-administered medications for this visit. OBJECTIVE: BP 128/94 Pulse 80 Resp 16 Wt 116.6 kg (257 lb) BMI 36.38 kg/m? Patient is alert, oriented times 3, no apparent distress, affect is bright, reactive. Last 5 Encounter BP Readings: Date: BP: 04/18/2018 128/94 03/28/2018 118/83[BP REECE[ 03/16/2018 127/89 11/30/2017 120/84 09/16/2017 138/88 Last 5 Encounter Wt Readings: Date: Wt: 04/18/2018 116.6 kg (257 lb) 03/28/2018 112.9 kg (249 lb) 03/16/2018 112.9 kg (249 lb) 11/30/2017 111.1 kg (245 lb) 09/16/2017 112.5 kg (248 lb) 04/18/18 1807 04/18/18 1846 BP: 128/94 130/82 Pulse: 80 Resp: 16 Weight: 116.6 kg (257 lb) Neck: left side of midline--about nickel to quarter sized lipomatous lump noted--not tender Heart: Regular rate, rhythm, no murmurs, gallops, rubs. Lungs: Clear to auscultation, bilaterally, breathing non labored. Ext: No cyanosis, clubbing, or edema. Component Latest Ref Rng AND Units 07/31/2014 03/31/2016 Glucose 65 - 100 mg/dL 86 83 BUN 10 - 25 mg/dL 13 11 Creatinine 0.70 - 1.40 mg/dL 0.97 0.99 Sodium 135 - 146 mmol/L 137 138 Potassium 3.5 - 5.0 mmol/L 4.3 4.3 Chloride 98 - 110 mmol/L 102 101 CO2 23 - 32 mmol/L 24 24 Anion Gap 0 - 15 mmol/L 11 13 Calcium 8.5 - 10.5 mg/dL 9.4 9.0 eGFR- >60 >60 eGFR-All Other Races . >60 >60 WBC 3.70 - 11.00 k/uL 5.85 RBC 4.20 - 6.00 m/uL 5.14 Hemoglobin 13.0 - 17.0 g/dL 14.9 Hematocrit 39.0 - 51.0 % 44.8 MCV 80.0 - 100.0 fL 87.2 MCH 26.0 - 34.0 pG 29.0 MCHC 30.5 - 36.0 g/dL 33.3 RDW-CV 11.5 - 15.0 % 13.2 Platelet Count 150 - 400 k/uL 210 MPV 9.0 - 12.7 fL 9.9 Triglyceride 30 - 149 mg/dL 143 Cholesterol, Total 100 - 199 mg/dL 209 (H) HDL Cholesterol >45 mg/dL 33 (L) VLDL Cholesterol 6 - 40 mg/dL 29 LDL Cholesterol 60 - 129 mg/dL 147 (H) Fasting Time hrs FASTING TC:HDL Ratio 1.00 - 5.00 6.33 (H) LDL:HDL Ratio 0.50 - 3.55 4.45 (H) Non HDL Cholesterol 90 - 159 mg/dL 176 (H) TSH 0.400 - 5.500 uU/mL 0.737 Magnesium 1.7 - 2.6 mg/dL 2.2 ASSESSMENT AND PLAN: Encounter Diagnosis ICD-10-CM 1. Elevated blood-pressure reading without diagnosis of hypertension R03.0 2. Episodic tension-type headache, not intractable G44.219 3. Obsessive-compulsive disorder, unspecified type F42.[address] Rutledge No longer daily headaches. BP coming down on recheck today. Get back on track with healthy diet. Work on getting regular exercise. Above issues addressed with patient. Patient involved in shared decision making for management of her medical issues. History and medications reviewed. Epic updated as needed Refills taken care of and meds adjusted as indicated after reviewed history, exam and labs. Health Maintenance reviewed. Updated record and/or ordered tests as recorded. Encouraged on efforts at healthy diet and regular exercise and adequate sleep. The majority of the visit was spent counseling and/or coordinating care for the patient. Wzye-yt-kswz time was at least 25 minutes. Mariella Hall MD CNOV Observed: 04/18/2018 Status: COMPLETED Source: [place] 6:00 PM [facility] REPOSITORY Office Visit (INTMWS) SNOWDENSELENE ([id number]) 1980 M Date Time Provider Department 04/18/18 6:00 PM MARIELLA HALL INTMWS During your visit today, we recorded the following information about you: Pulse Respiration Blood pressure Weight 80/minute 16/minute 130/82 116.6 kg Mariella Hall MD 04/26/2018 11:13 PM Signed Patient presents with: Recheck Headaches SUBJECTIVE: Ousmane Miller is a 38 year old year old gentleman here today for follow up appointment for review of medical conditions. BPs with some 90's but most 120 to to 130's over 80's. One 124/74. The past week staying in 120 to 130's mostly with just on Tuesday 140/96. Sensitivity left forehead area correlated with massive headaches and high BP. Extension exercises prevent the massive headaches. Still has the sensitivity. Once a day ibuprofen 800mg now with doing extension exercises. Takes when headaches start. Labs in August through work. PAST MEDICAL HISTORY Diagnosis Date - Hiatal hernia 08/14 - Obsessive compulsive disorder - Obstructive sleep apnea - Sleep apnea Current Outpatient Prescriptions: busPIRone (BUSPAR) 5 mg tablet Two to three times per day. pantoprazole sodium (PROTONIX ORAL) Take 1 tablet by mouth once daily. FLUoxetine HCl (PROZAC) 40 mg capsule Take 1 capsule by mouth once daily. CPAP Initiate Auto PAP @ 5-20 cm of water with humidification. Mask (per patient preference) optional chin strap (if indicated) , filters, tubing, humidifier and lifetime supplies. (G47.33) SILVANO (obstructive sleep apnea) multivitamin tablet Take 1 tablet by mouth once daily. ibuprofen (ADVIL) 200 mg tablet Take 200 mg by mouth every 6 hours as needed. Lysine 1,000 mg Tab Take 1 tablet by mouth once daily. fluticasone (FLONASE) 50 mcg/actuation nasal spray Use 1 Alicia in each nostril once daily. (Patient not taking: Reported on 04/18/2018 ) No current facility-administered medications for this visit. OBJECTIVE: BP 128/94 Pulse 80 Resp 16 Wt 116.6 kg (257 lb) BMI 36.38 kg/m? Patient is alert, oriented times 3, no apparent distress, affect is bright, reactive. Last 5 Encounter BP Readings: Date: BP: 04/18/2018 128/94 03/28/2018 118/83[BP REECE[ 03/16/2018 127/89 11/30/2017 120/84 09/16/2017 138/88 Last 5 Encounter Wt Readings: Date: Wt: 04/18/2018 116.6 kg (257 lb) 03/28/2018 112.9 kg (249 lb) 03/16/2018 112.9 kg (249 lb) 11/30/2017 111.1 kg (245 lb) 09/16/2017 112.5 kg (248 lb) 04/18/18 1807 04/18/18 1846 BP: 128/94 130/82 Pulse: 80 Resp: 16 Weight: 116.6 kg (257 lb) Neck: left side of midline--about nickel to quarter sized lipomatous lump noted--not tender Heart: Regular rate, rhythm, no murmurs, gallops, rubs. Lungs: Clear to auscultation, bilaterally, breathing non labored. Ext: No cyanosis, clubbing, or edema. Component Latest Ref Rng AND Units 07/31/2014 03/31/2016 Glucose 65 - 100 mg/dL 86 83 BUN 10 - 25 mg/dL 13 11 Creatinine 0.70 - 1.40 mg/dL 0.97 0.99 Sodium 135 - 146 mmol/L 137 138 Potassium 3.5 - 5.0 mmol/L 4.3 4.3 Chloride 98 - 110 mmol/L 102 101 CO2 23 - 32 mmol/L 24 24 Anion Gap 0 - 15 mmol/L 11 13 Calcium 8.5 - 10.5 mg/dL 9.4 9.0 eGFR- >60 >60 eGFR-All Other Races . >60 >60 WBC 3.70 - 11.00 k/uL 5.85 RBC 4.20 - 6.00 m/uL 5.14 Hemoglobin 13.0 - 17.0 g/dL 14.9 Hematocrit 39.0 - 51.0 % 44.8 MCV 80.0 - 100.0 fL 87.2 MCH 26.0 - 34.0 pG 29.0 MCHC 30.5 - 36.0 g/dL 33.3 RDW-CV 11.5 - 15.0 % 13.2 Platelet Count 150 - 400 k/uL 210 MPV 9.0 - 12.7 fL 9.9 Triglyceride 30 - 149 mg/dL 143 Cholesterol, Total 100 - 199 mg/dL 209 (H) HDL Cholesterol >45 mg/dL 33 (L) VLDL Cholesterol 6 - 40 mg/dL 29 LDL Cholesterol 60 - 129 mg/dL 147 (H) Fasting Time hrs FASTING TC:HDL Ratio 1.00 - 5.00 6.33 (H) LDL:HDL Ratio 0.50 - 3.55 4.45 (H) Non HDL Cholesterol 90 - 159 mg/dL 176 (H) TSH 0.400 - 5.500 uU/mL 0.737 Magnesium 1.7 - 2.6 mg/dL 2.2 ASSESSMENT AND PLAN: Encounter Diagnosis ICD-10-CM 1. Elevated blood-pressure reading without diagnosis of hypertension R03.0 2. Episodic tension-type headache, not intractable G44.219 3. Obsessive-compulsive disorder, unspecified type F42.[address] Rutledge No longer daily headaches. BP coming down on recheck today. Get back on track with healthy diet. Work on getting regular exercise. Above issues addressed with patient. Patient involved in shared decision making for management of her medical issues. History and medications reviewed. Epic updated as needed Refills taken care of and meds adjusted as indicated after reviewed history, exam and labs. Health Maintenance reviewed. Updated record and/or ordered tests as recorded. Encouraged on efforts at healthy diet and regular exercise and adequate sleep. The majority of the visit was spent counseling and/or coordinating care for the patient. [id number] time was at least 25 minutes. Mariella Hall MD Allergies As of Date: 04/18/2018 (No Known Allergies) Date Reviewed: 04/18/2018 Reviewed by: Leydi Hurst LPN - Fully Assessed Reason for Visit: Recheck [92] Headaches [3461] Primary Visit Diagnosis:Elevated blood-pressure reading without diagnosis of hypertension [R03.0] Other Visit Diagnoses:Episodic tension-type headache, not intractable [G44.219] Obsessive-compulsive disorder, unspecified type [F42.9] Comment:to see Dr. Rutledge Order(s):busPIRone (BUSPAR) 10 mg tabletTake 1 tablet by mouth twice daily. As directedDisp: 60 tabletRfl: [address] (PROTONIX) 40 mg tabletTake 1 tablet by mouth once daily.Disp: 60 tabletRfl: 5 Prescriptions as of 04/18/2018 Sig: FLUOXETINE 40 MG CAPSULE Take 1 capsule by mouth once * CPAP Initiate Auto PAP @ 5- 20 cm o* MULTIVITAMIN TABLET Take 1 tablet by mouth once d* IBUPROFEN 200 MG TABLET Take 200 mg by mouth every 6 * LYSINE 1,000 MG TABLET Take 1 tablet by mouth once d* BUSPIRONE 10 MG TABLET Take 1 tablet by mouth twice * PANTOPRAZOLE 40 MG TABLET,DEL* Take 1 tablet by mouth once d* FLUTICASONE 50 MCG/ACTUATION * Use 1 Alicia in each nostril o* Patient not taking: Reported on 04/18/2018 Problem List As Of Date 04/18/2018 Noted Resolved OCD (obsessive compulsive disorder) [F42.9] INVALID FOR* Palpitations [R00.2] INVALID FOR* Chest pain [R07.9] INVALID FOR* More... SILVANO (obstructive sleep apnea) [G47.33] INVALID FOR* Prescriptions ordered this encounter Disp Refills Start End BUSPIRONE 10 MG TABLET 60 t* 5 04/18/2018 Cmt: Intentional dose change Route: ORAL Sig: Take 1 tablet by mouth twice daily. As directed PANTOPRAZOLE 40 MG TABLET,DELAYED RE* 60 t* 5 04/18/2018 Cmt: if insurance does not cover 60 days supply at a time on this, okay 30 days with 11 RF Route: ORAL Sig: Take 1 tablet by mouth once daily. Medications Discontinued During This Encounter busPIRone (BUSPAR) 5 mg tablet 90 t* 2 03/28/2018 04/18/2018 Sig: Two to three times per day. Disc: Reason for discontinue is not on file. pantoprazole sodium (PROTONIX ORAL) 04/18/2018 Class: Historical Med Route: ORAL Sig: Take 1 tablet by mouth once daily. Disc: Reason for discontinue is not on file. Disposition: Return for 2 to 3 months (ar or Evie). Follow-up and Disposition History Recorded Encounter Status:Closed by MARIELLA HALL MD on 04/26/18 CNOV Observed: 03/28/2018 Status: COMPLETED Source: [place] 7:40 AM [facility] REPOSITORY Office Visit (INTMWS) SELENE SNOWDEN ([id number]) 1980 M Date Time Provider Department 03/28/18 7:40 AM RADHA GARG) INTArtWS During your visit today, we recorded the following information about you: Pulse Respiration Blood pressure Weight 72/minute 16/minute 118/83 112.9 kg Radha Garg APRN.CNS 03/28/2018 8:42 AM Signed OUTPATIENT VISIT DATE March 28, 2018 OUTPATIENT VISIT TYPE ESTABLISHED PRIMARY CARE PHYSICIAN: Mariella Hall MD CHIEF COMPLAINT: Patient presents with: Recheck: BP follow up, elevated and headaches History of Present Illness: Selene Snowden is a 37 year old male who was last seen 03/16/[address] Vargas.. He has been seen in the past for ACTIVE PROBLEM LIST Ocd (Obsessive Compulsive Disorder) Palpitations Chest Pain Silvano (Obstructive Sleep Apnea) Noted to have headache, treated with methylprenisolone. Advised NSAIDs once completed. Eye exam advised for exudate left eye. Noted to have BP elevation, advised to follow up regarding BP. Since the last visit, he states that he has had an eye exam and advised that this was normal. He reports home blood pressures have run 120-140/70-80. He reports headache initially felt improved with treatment, has now intermittently recurred, notes starts at neck and comes over his head. Reports always under stress.Without report of photophobia, phonophobia. Reports history of OCD, feels like it's less well controlled than usual. Reports going to counseling in the past, has been about 20 years or so since last seen. Has been taking fluoxetine since teen years, does feel like his anxiety is increased and wonders if this may be contributing to headache. HTN: Mr. Snowden reports no headache, chest pain, palpitations, dyspnea and peripheral edema. Last 3 Encounter BP Readings: Date: BP: 03/16/2018 127/89 11/30/2017 120/84 09/16/2017 138/88 No recent hospital or ED visits. No new medical problems or medications. Able to obtain medications. No problems with taking medications or note side effects. PAST MEDICAL HISTORY Diagnosis Date - Hiatal hernia 08/14 - Obsessive compulsive disorder - Obstructive sleep apnea - Sleep apnea PAST SURGICAL HISTORY Procedure Laterality Date - COLONOSCOPY 08/14 [place] - normal results - ENDOSCOPY PROC 08/14 [place] FAMILY HISTORY Problem Relation Age of Onset - Psychiatry Father schizoprhenia - Heart Failure Father - Psychiatry Mother - obesity [Other] [OTHER] Mother - Diabetes Mother - Heart Mother atrial fibrillation - Colon Cancer Maternal Grandmother - Diabetes Maternal Grandmother - Cancer Maternal Uncle stomach and throat. - Diabetes Maternal Uncle Social History Substance Use Topics - Smoking status: Never Smoker - Smokeless tobacco: Never Used - Alcohol use Yes Comment: occassionally ALLERGIES: ALLERGIES No Known Allergies MEDICATIONS pantoprazole sodium (PROTONIX ORAL) Take 1 tablet by mouth once daily. FLUoxetine HCl (PROZAC) 40 mg capsule Take 1 capsule by mouth once daily. CPAP Initiate Auto PAP @ 5-20 cm of water with humidification. Mask (per patient preference) optional chin strap (if indicated) , filters, tubing, humidifier and lifetime supplies. (G47.33) SILVANO (obstructive sleep apnea) fluticasone (FLONASE) 50 mcg/actuation nasal spray Use 1 Alicia in each nostril once daily. multivitamin tablet Take 1 tablet by mouth once daily. ibuprofen (ADVIL) 200 mg tablet Take 200 mg by mouth every 6 hours as needed. Lysine 1,000 mg Tab Take 1 tablet by mouth once daily. REVIEW OF SYSTEMS: GENERAL: Negative for: Weight loss or gain, Fever or Chills, Weakness and Sleep difficulties. Physical Examination: BP 136/90 Pulse 72 Resp 16 Wt 249 lb (112.9kg) General appearance: Well appearing, alert, in no acute distress, well-hydrated, well nourished. Skin: Skin color, texture, turgor normal, no suspicious rashes or lesions Head: Normocephalic, no masses, lesions, tenderness or abnormalities Eyes: Anicteric sclera. Pupils are equally round and reactive to light. Extraocular movements are intact. Ears: External ears normal, canals clear, TM's normal Nose/Sinuses: Nares normal, septum midline, mucosa normal, no drainage or sinus tenderness Oropharynx: Lips, mucosa, and tongue normal, teeth and gums normal, oropharynx normal Neck: Supple, no adenopathy; thyroid symmetric, normal size, no bruits Back: Normal exam Lungs: Lungs clear to auscultation. No wheezing, rhonchi, rales Heart: RRR without murmur, gallop, or rubs. No ectopy Abdomen: Normal abdominal exam, Abdomen soft, non-tender. Bowel sounds normal. No masses, organomegaly Extremities: No deformities, edema, skin discoloration, clubbing or cyanosis. Good capillary refill. Musculoskeletal: Spine range of motion normal. Muscular strength intact, No joint swelling, deformity, or tenderness Peripheral pulses: Normal Neuro: Gait normal. Reflexes normal and symmetric. Sensation grossly intact. Reviewed chart, outside records, tests [facility] website checked and validated. All prescriptions have been APPROPRIATELY filled. No suspicious activity was identified.- 03/28/2018 by Radha Garg APRN.DRESSAGE INSTRUCTOR I personally interviewed, confirmed and edited the above information if obtained by others. TESTING: Glucose (mg/dL) Date Value 03/31/2016 83 Potassium (mmol/L) Date Value 03/31/2016 4.3 Sodium (mmol/L) Date Value 03/31/2016 138 Chloride (mmol/L) Date Value 03/31/2016 101 CO2 (mmol/L) Date Value 03/31/2016 24 Creatinine (mg/dL) Date Value 03/31/2016 0.99 BUN (mg/dL) Date Value 03/31/2016 11 Anion Gap (mmol/L) Date Value 03/31/2016 13 Calcium (mg/dL) Date Value 03/31/2016 9.0 Glucose (mg/dL) Date Value 03/31/2016 83 Potassium (mmol/L) Date Value 03/31/2016 4.3 Sodium (mmol/L) Date Value 03/31/2016 138 Chloride (mmol/L) Date Value 03/31/2016 101 CO2 (mmol/L) Date Value 03/31/2016 24 Creatinine (mg/dL) Date Value 03/31/2016 0.99 BUN (mg/dL) Date Value 03/31/2016 11 Anion Gap (mmol/L) Date Value 03/31/2016 13 Calcium (mg/dL) Date Value 03/31/2016 9.0 Hemoglobin (g/dL) Date Value 03/31/2016 14.9 Hematocrit (%) Date Value 03/31/2016 44.8 WBC (k/uL) Date Value 03/31/2016 5.85 Cholesterol, Total (mg/dL) Date Value 08/13/2016 194 HDL Cholesterol (mg/dL) Date Value 08/13/2016 32 LDL Cholesterol (mg/dL) Date Value 08/13/2016 127 Triglyceride (mg/dL) Date Value 08/13/2016 176 No results found for: HBA1C Ejection Fraction: No results found IMPRESSION: Mr. Snowden is a 37 year old man presents for follow-up of blood pressure After my examination and review of data, I make the following recommendations. PLAN AND RECOMMENDATIONS: 1. Anxiety - ICD9: 300.00, ICD10: F41.9 (primary diagnosis) Add BuSpar 5 mg 2-3 times a day to see if this helps with anxiety - CONSULT TO PSYCHOLOGY 2. New daily persistent headache - ICD9: 339.42, ICD10: G44.52 As needed NSAIIDs 3. Elevated blood pressure reading - ICD9: 796.2, ICD10: R03.0 Only slight elevation of diastolic pressure today. Recommend continuing to avoid salt in diet, check blood pressure once daily and bring to next visit 4. Obsessive-compulsive disorder, unspecified type - ICD9: 300.3, ICD10: F42.9 Add BuSpar 5 mg 2-3 times a day to see if this helps with anxiety Make an appointment with Dr. Rutledge for further evaluation and treatment Keep scheduled follow-up appointment with primary doctor next month Advised to go to ER if develops chest pain, shortness of breath, or severe worsening of symptoms. Discussed risks, benefits, alternatives, and potential side effects of medications. Mr. Snowden expressed understanding and agreed with the plan. Radha Garg APRN.KARRIE Garg APRN.CNS 03/28/2018 8:19 AM Addendum Avoid salty foods in diet. Check BP once daily. Try adding Buspar two to three times daily for anxiety. Make an appt with Dr. Rutledge. Referring Provider: SELF [200] Allergies As of Date: 03/28/2018 (No Known Allergies) Date Reviewed: 03/28/2018 Reviewed by: Jessie August Ma - Fully Assessed Reason for Visit: Recheck [92] Cmt: BP follow up, elevated and headaches Primary Visit Diagnosis:Anxiety [F41.9] Other Visit Diagnoses:New daily persistent headache [G44.52] Elevated blood pressure reading [R03.0] Obsessive-compulsive disorder, unspecified type [F42.9] Order(s):CONSULT TO PSYCHOLOGY [9036] Order #: [id number]: 1 busPIRone (BUSPAR) 5 mg tabletTwo to three times per day.Disp: 90 tabletRfl: 2 Prescriptions as of 03/28/2018 Sig: BUSPIRONE 5 MG TABLET Two to three times per day. PROTONIX ORAL Take 1 tablet by mouth once d* FLUOXETINE 40 MG CAPSULE Take 1 capsule by mouth once * CPAP Initiate Auto PAP @ 5- 20 cm o* FLUTICASONE 50 MCG/ACTUATION * Use 1 Alicia in each nostril o* MULTIVITAMIN TABLET Take 1 tablet by mouth once d* IBUPROFEN 200 MG TABLET Take 200 mg by mouth every 6 * LYSINE 1,000 MG TABLET Take 1 tablet by mouth once d* Problem List As Of Date 03/28/2018 Noted Resolved OCD (obsessive compulsive disorder) [F42.9] INVALID FOR* Palpitations [R00.2] INVALID FOR* Chest pain [R07.9] INVALID FOR* More... SILVANO (obstructive sleep apnea) [G47.33] INVALID FOR* Other instructions from your clinician: Avoid salty foods in diet. Check BP once daily. Try adding Buspar two to three times daily for anxiety. Make an appt with Dr. Rutledge. Prescriptions ordered this encounter Disp Refills Start End BUSPIRONE 5 MG TABLET 90 t* 2 03/28/2018 Sig: Two to three times per day. Encounter Status:Closed by RADHA BROWN on 03/28/18 PROGRESS Observed: 03/28/2018 Status: COMPLETED Source: [place] 7:13 AM [facility] [place] REPOSITORY O ID: [id number] Author: Radha (Doctor'S Assistant) Garg Service: (none) Author Type: Nurse Specialist Type: Progress Notes Filed: 03/28/2018 8:42 AM Note Text: OUTPATIENT VISIT DATE March 28, 2018 OUTPATIENT VISIT TYPE ESTABLISHED PRIMARY CARE PHYSICIAN: Mariella Hall MD CHIEF COMPLAINT: Patient presents with: Recheck: BP follow up, elevated and headaches History of Present Illness: Selene Snowden is a 37 year old male who was last seen 03/16/[address] Vargas.. He has been seen in the past for ACTIVE PROBLEM LIST Ocd (Obsessive Compulsive Disorder) Palpitations Chest Pain Silvano (Obstructive Sleep Apnea) Noted to have headache, treated with methylprenisolone. Advised NSAIDs once completed. Eye exam advised for exudate left eye. Noted to have BP elevation, advised to follow up regarding BP. Since the last visit, he states that he has had an eye exam and advised that this was normal. He reports home blood pressures have run 120-140/70-80. He reports headache initially felt improved with treatment, has now intermittently recurred, notes starts at neck and comes over his head. Reports always under stress.Without report of photophobia, phonophobia. Reports history of OCD, feels like it's less well controlled than usual. Reports going to counseling in the past, has been about 20 years or so since last seen. Has been taking fluoxetine since teen years, does feel like his anxiety is increased and wonders if this may be contributing to headache. HTN: Mr. Snowden reports no headache, chest pain, palpitations, dyspnea and peripheral edema. Last 3 Encounter BP Readings: Date: BP: 03/16/2018 127/89 11/30/2017 120/84 09/16/2017 138/88 No recent hospital or ED visits. No new medical problems or medications. Able to obtain medications. No problems with taking medications or note side effects. PAST MEDICAL HISTORY Diagnosis Date - Hiatal hernia 08/14 - Obsessive compulsive disorder - Obstructive sleep apnea - Sleep apnea PAST SURGICAL HISTORY Procedure Laterality Date - COLONOSCOPY 08/14 [place] - normal results - ENDOSCOPY PROC 08/14 [place] FAMILY HISTORY Problem Relation Age of Onset - Psychiatry Father schizoprhenia - Heart Failure Father - Psychiatry Mother - obesity [Other] [OTHER] Mother - Diabetes Mother - Heart Mother atrial fibrillation - Colon Cancer Maternal Grandmother - Diabetes Maternal Grandmother - Cancer Maternal Uncle stomach and throat. - Diabetes Maternal Uncle Social History Substance Use Topics - Smoking status: Never Smoker - Smokeless tobacco: Never Used - Alcohol use Yes Comment: occassionally ALLERGIES: ALLERGIES No Known Allergies MEDICATIONS pantoprazole sodium (PROTONIX ORAL) Take 1 tablet by mouth once daily. FLUoxetine HCl (PROZAC) 40 mg capsule Take 1 capsule by mouth once daily. CPAP Initiate Auto PAP @ 5-20 cm of water with humidification. Mask (per patient preference) optional chin strap (if indicated) , filters, tubing, humidifier and lifetime supplies. (G47.33) SILVANO (obstructive sleep apnea) fluticasone (FLONASE) 50 mcg/actuation nasal spray Use 1 Alicia in each nostril once daily. multivitamin tablet Take 1 tablet by mouth once daily. ibuprofen (ADVIL) 200 mg tablet Take 200 mg by mouth every 6 hours as needed. Lysine 1,000 mg Tab Take 1 tablet by mouth once daily. REVIEW OF SYSTEMS: GENERAL: Negative for: Weight loss or gain, Fever or Chills, Weakness and Sleep difficulties. Physical Examination: BP 136/90 Pulse 72 Resp 16 Wt 249 lb (112.9kg) General appearance: Well appearing, alert, in no acute distress, well-hydrated, well nourished. Skin: Skin color, texture, turgor normal, no suspicious rashes or lesions Head: Normocephalic, no masses, lesions, tenderness or abnormalities Eyes: Anicteric sclera. Pupils are equally round and reactive to light. Extraocular movements are intact. Ears: External ears normal, canals clear, TM's normal Nose/Sinuses: Nares normal, septum midline, mucosa normal, no drainage or sinus tenderness Oropharynx: Lips, mucosa, and tongue normal, teeth and gums normal, oropharynx normal Neck: Supple, no adenopathy; thyroid symmetric, normal size, no bruits Back: Normal exam Lungs: Lungs clear to auscultation. No wheezing, rhonchi, rales Heart: RRR without murmur, gallop, or rubs. No ectopy Abdomen: Normal abdominal exam, Abdomen soft, non-tender. Bowel sounds normal. No masses, organomegaly Extremities: No deformities, edema, skin discoloration, clubbing or cyanosis. Good capillary refill. Musculoskeletal: Spine range of motion normal. Muscular strength intact, No joint swelling, deformity, or tenderness Peripheral pulses: Normal Neuro: Gait normal. Reflexes normal and symmetric. Sensation grossly intact. Reviewed chart, outside records, tests [facility] website checked and validated. All prescriptions have been APPROPRIATELY filled. No suspicious activity was identified.- 03/28/2018 by Radah Garg APRN.DRESSAGE INSTRUCTOR I personally interviewed, confirmed and edited the above information if obtained by others. TESTING: Glucose (mg/dL) Date Value 03/31/2016 83 Potassium (mmol/L) Date Value 03/31/2016 4.3 Sodium (mmol/L) Date Value 03/31/2016 138 Chloride (mmol/L) Date Value 03/31/2016 101 CO2 (mmol/L) Date Value 03/31/2016 24 Creatinine (mg/dL) Date Value 03/31/2016 0.99 BUN (mg/dL) Date Value 03/31/2016 11 Anion Gap (mmol/L) Date Value 03/31/2016 13 Calcium (mg/dL) Date Value 03/31/2016 9.0 Glucose (mg/dL) Date Value 03/31/2016 83 Potassium (mmol/L) Date Value 03/31/2016 4.3 Sodium (mmol/L) Date Value 03/31/2016 138 Chloride (mmol/L) Date Value 03/31/2016 101 CO2 (mmol/L) Date Value 03/31/2016 24 Creatinine (mg/dL) Date Value 03/31/2016 0.99 BUN (mg/dL) Date Value 03/31/2016 11 Anion Gap (mmol/L) Date Value 03/31/2016 13 Calcium (mg/dL) Date Value 03/31/2016 9.0 Hemoglobin (g/dL) Date Value 03/31/2016 14.9 Hematocrit (%) Date Value 03/31/2016 44.8 WBC (k/uL) Date Value 03/31/2016 5.85 Cholesterol, Total (mg/dL) Date Value 08/13/2016 194 HDL Cholesterol (mg/dL) Date Value 08/13/2016 32 LDL Cholesterol (mg/dL) Date Value 08/13/2016 127 Triglyceride (mg/dL) Date Value 08/13/2016 176 No results found for: HBA1C Ejection Fraction: No results found IMPRESSION: Mr. Snowden is a 37 year old man presents for follow-up of blood pressure After my examination and review of data, I make the following recommendations. PLAN AND RECOMMENDATIONS: 1. Anxiety - ICD9: 300.00, ICD10: F41.9 (primary diagnosis) Add BuSpar 5 mg 2-3 times a day to see if this helps with anxiety - CONSULT TO PSYCHOLOGY 2. New daily persistent headache - ICD9: 339.42, ICD10: G44.52 As needed NSAIIDs 3. Elevated blood pressure reading - ICD9: 796.2, ICD10: R03.0 Only slight elevation of diastolic pressure today. Recommend continuing to avoid salt in diet, check blood pressure once daily and bring to next visit 4. Obsessive-compulsive disorder, unspecified type - ICD9: 300.3, ICD10: F42.9 Add BuSpar 5 mg 2-3 times a day to see if this helps with anxiety Make an appointment with Dr. Rutledge for further evaluation and treatment Keep scheduled follow-up appointment with primary doctor next month Advised to go to ER if develops chest pain, shortness of breath, or severe worsening of symptoms. Discussed risks, benefits, alternatives, and potential side effects of medications. Mr. Snowden expressed understanding and agreed with the plan. Radha Garg APRN.DRESSAGE INSTRUCTOR PROGRESS Observed: 03/16/2018 Status: COMPLETED Source: [place] 9:44 AM [facility] RE[facility] HNO ID: [id number] Author: Isaiah Vargas Service: (none) Author Type: Physician Type: Progress Notes Filed: 03/16/2018 10:18 AM Note Text: This note was created using PowerOasisriter. Subjective Selene Snowden is a 37 year old year old male who presents with complaint of acute headache(s) for a week. Pain is located occipital region and behind eye and described as aching and throbbing. Headaches are described as being severe in intensity. This headache began with sensitive skin in the left forehead and eyelid and are associated with symptoms of photophobia and phonophobia. The patient is not aware of any specific triggers. Symptoms have been treated with anti-inflammatory drugs with temporary relief. The patient denies numbness, weakness, slurred speech, visual changes, dizziness, clumsiness, difficulty with gait, change in level of consciousness, change in orientation, change in behavior and fever. He denies history of head injury or trauma and no change in alcohol or caffeine use. He normally had 2 minor headaches a week, relieved by neck traction and neck therapies by spouse who is a adaptive physical educator. Review of Systems Per HPI. ACTIVE PROBLEM LIST Ocd (Obsessive Compulsive Disorder) Palpitations Chest Pain Silvano (Obstructive Sleep Apnea) Current Outpatient Prescriptions: pantoprazole sodium (PROTONIX ORAL) Take 1 tablet by mouth once daily. FLUoxetine HCl (PROZAC) 40 mg capsule Take 1 capsule by mouth once daily. CPAP Initiate Auto PAP @ 5-20 cm of water with humidification. Mask (per patient preference) optional chin strap (if indicated) , filters, tubing, humidifier and lifetime supplies. (G47.33) SILVANO (obstructive sleep apnea) fluticasone (FLONASE) 50 mcg/actuation nasal spray Use 1 Alicia in each nostril once daily. multivitamin tablet Take 1 tablet by mouth once daily. ibuprofen (ADVIL) 200 mg tablet Take 200 mg by mouth every 6 hours as needed. Lysine 1,000 mg Tab Take 1 tablet by mouth once daily. methylPREDNISolone (MEDROL, SRINIVAS,) 4 mg Dose-Pack Follow dosing instructions, take with food. No current facility-administered medications for this visit. Objective BP 127/89 (BP Site: Left Arm, BP Position: Sitting, BP Cuff Size: Regular Adult) Pulse 69 Temp 36.4 ?C (97.5 ?F) (Left Tympanic) Resp 16 Wt 112.9 kg (249 lb) BMI 35.25 kg/m? Physical Exam Constitutional: No distress. HENT: Head: Normocephalic. Mouth/Throat: Oropharynx is clear and moist. Eyes: Conjunctivae and EOM are normal. Pupils are equal, round, and reactive to light. Fundoscopic exam: The right eye shows no hemorrhage and no papilledema. The left eye shows exudate. The left eye shows no hemorrhage and no papilledema. Pigmentary deposit close to disc on left. Neck: Normal range of motion. Neck supple. Small lipoma base of neck. Cardiovascular: Normal heart sounds. Exam reveals no gallop. No murmur heard. Lymphadenopathy: He has no cervical adenopathy. Neurological: He is alert. He has normal strength. No cranial nerve deficit or sensory deficit. Coordination and gait normal. Assessment and Plan 1. New daily persistent headache - ICD9: 339.42, ICD10: G44.52 (primary diagnosis) Migraine variant? Cluster? - METHYLPREDNISOLONE 4 MG TABLETS IN A DOSE PACK Benefits: Medication may help headache in the short term and not in the custodial. Risks: Possible side effects include restlessness. Possible interactions: none. Warnings: not for custodial use. Options: include: continue NSAID. Cost: generic. Duration: one time. 2. Fundoscopy abnormal - ICD9: 793.99, ICD10: R93.8 See printed instructions or information. 3. Elevated blood pressure reading - ICD9: 796.2, ICD10: R03.0 Monitor. PCP appointment next month as scheduled. Isaiah Vargas MD CNOV Observed: 03/16/2018 Status: COMPLETED Source: [place] 9:20 AM [facility] REPOSITORY Office Visit (INTMWS) SELENE SNOWDEN ([id number]) 1980 M Date Time Provider Department 03/16/18 9:20 AM ISAIAH VARGAS During your visit today, we recorded the following information about you: Temperature Pulse Respiration Blood pressure 97.5 degrees 69/minute 16/minute 127/89 Weight 112.9 kg Isaiah Vargas MD 03/16/2018 10:18 AM Signed This note was created using PowerOasis[employer]. Subjective Selene Snowden is a 37 year old year old male who presents with complaint of acute headache(s) for a week. Pain is located occipital region and behind eye and described as aching and throbbing. Headaches are described as being severe in intensity. This headache began with sensitive skin in the left forehead and eyelid and are associated with symptoms of photophobia and phonophobia. The patient is not aware of any specific triggers. Symptoms have been treated with anti-inflammatory drugs with temporary relief. The patient denies numbness, weakness, slurred speech, visual changes, dizziness, clumsiness, difficulty with gait, change in level of consciousness, change in orientation, change in behavior and fever. He denies history of head injury or trauma and no change in alcohol or caffeine use. He normally had 2 minor headaches a week, relieved by neck traction and neck therapies by spouse who is a adaptive physical educator. Review of Systems Per HPI. ACTIVE PROBLEM LIST Ocd (Obsessive Compulsive Disorder) Palpitations Chest Pain Silvano (Obstructive Sleep Apnea) Current Outpatient Prescriptions: pantoprazole sodium (PROTONIX ORAL) Take 1 tablet by mouth once daily. FLUoxetine HCl (PROZAC) 40 mg capsule Take 1 capsule by mouth once daily. CPAP Initiate Auto PAP @ 5-20 cm of water with humidification. Mask (per patient preference) optional chin strap (if indicated) , filters, tubing, humidifier and lifetime supplies. (G47.33) SILVANO (obstructive sleep apnea) fluticasone (FLONASE) 50 mcg/actuation nasal spray Use 1 Alicia in each nostril once daily. multivitamin tablet Take 1 tablet by mouth once daily. ibuprofen (ADVIL) 200 mg tablet Take 200 mg by mouth every 6 hours as needed. Lysine 1,000 mg Tab Take 1 tablet by mouth once daily. methylPREDNISolone (MEDROL, SRINIVAS,) 4 mg Dose-Pack Follow dosing instructions, take with food. No current facility-administered medications for this visit. Objective BP 127/89 (BP Site: Left Arm, BP Position: Sitting, BP Cuff Size: Regular Adult) Pulse 69 Temp 36.4 ?C (97.5 ?F) (Left Tympanic) Resp 16 Wt 112.9 kg (249 lb) BMI 35.25 kg/m? Physical Exam Constitutional: No distress. HENT: Head: Normocephalic. Mouth/Throat: Oropharynx is clear and moist. Eyes: Conjunctivae and EOM are normal. Pupils are equal, round, and reactive to light. Fundoscopic exam: The right eye shows no hemorrhage and no papilledema. The left eye shows exudate. The left eye shows no hemorrhage and no papilledema. Pigmentary deposit close to disc on left. Neck: Normal range of motion. Neck supple. Small lipoma base of neck. Cardiovascular: Normal heart sounds. Exam reveals no gallop. No murmur heard. Lymphadenopathy: He has no cervical adenopathy. Neurological: He is alert. He has normal strength. No cranial nerve deficit or sensory deficit. Coordination and gait normal. Assessment and Plan 1. New daily persistent headache - ICD9: 339.42, ICD10: G44.52 (primary diagnosis) Migraine variant? Cluster? - METHYLPREDNISOLONE 4 MG TABLETS IN A DOSE PACK Benefits: Medication may help headache in the short term and not in the terminologist. Risks: Possible side effects include restlessness. Possible interactions: none. Warnings: not for terminologist use. Options: include: continue NSAID. Cost: generic. Duration: one time. 2. Fundoscopy abnormal - ICD9: 793.99, ICD10: R93.8 See printed instructions or information. 3. Elevated blood pressure reading - ICD9: 796.2, ICD10: R03.0 Monitor. PCP appointment next month as scheduled. MD Isaiah Cook MD 03/16/2018 9:59 AM Signed SEE EYE DOCTOR FOR FUNDUSCOPY EXAM. CHECK LEFT EYE. Referring Provider: SELF [[id number]] Allergies As of Date: 03/16/2018 (No Known Allergies) Date Reviewed: 03/16/2018 Reviewed by: Isatu Li LPN - Fully Assessed Reason for Visit: Headache [52] Primary Visit Diagnosis:New daily persistent headache [G44.52] Other Visit Diagnoses:Fundoscopy abnormal [R93.8] Elevated blood pressure reading [R03.0] Order(s):methylPREDNISolone (MEDROL, SRINIVAS,) 4 mg Dose-PackFollow dosing instructions, take with food.Disp: 1 PackageRfl: 0 Prescriptions as of 03/16/2018 Sig: PROTONIX ORAL Take 1 tablet by mouth once d* FLUOXETINE 40 MG CAPSULE Take 1 capsule by mouth once * CPAP Initiate Auto PAP @ 5- 20 cm o* FLUTICASONE 50 MCG/ACTUATION * Use 1 Alicia in each nostril o* MULTIVITAMIN TABLET Take 1 tablet by mouth once d* IBUPROFEN 200 MG TABLET Take 200 mg by mouth every 6 * LYSINE 1,000 MG TABLET Take 1 tablet by mouth once d* METHYLPREDNISOLONE 4 MG TABLE* Follow dosing instructions, t* Problem List As Of Date 03/16/2018 Noted Resolved OCD (obsessive compulsive disorder) [F42.9] INVALID FOR* Palpitations [R00.2] INVALID FOR* Chest pain [R07.9] INVALID FOR* More... SILVANO (obstructive sleep apnea) [G47.33] INVALID FOR* Other instructions from your clinician: SEE EYE DOCTOR FOR FUNDUSCOPY EXAM. CHECK LEFT EYE. Prescriptions ordered this encounter Disp Refills Start End METHYLPREDNISOLONE 4 MG TABLETS IN A* 1 Pa* 0 03/16/2018 03/22/2018 Sig: Follow dosing instructions, take with food. Medications Discontinued During This Encounter loratadine-pseudoephedrine ER (KARLA* 10 t* 0 12/15/2017 03/16/2018 Route: ORAL Sig: Take 1 tablet by mouth once daily as needed ( For allergy symptoms). Patient not taking: Reported on 03/16/2018 Disc: Reason for discontinue is not on file. lansoprazole (PREVACID) 30 mg capsule 30 c* 11 10/18/2016 03/16/2018 Route: ORAL Sig: Take 1 capsule by mouth once daily. Patient not taking: Reported on 03/16/2018 Disc: Reason for discontinue is not on file. sucralfate (CARAFATE) 1 gram tablet 120 * 1 07/26/2017 03/16/2018 Cmt: This prescription was filled today(11/06/2016). Any refills authorized will be placed on file. Sig: TAKE 1 TABLET BY MOUTH BEFORE MEALS AND AT BEDTIME Patient not taking: Reported on 03/16/2018 Disc: Reason for discontinue is not on file. Disposition: Return if symptoms worsen or fail to improve. Follow-up and Disposition History Recorded Encounter Status:Closed by ISAIAH VARGAS MD on 03/16/18 PROGRESS Observed: 12/15/2017 Status: COMPLETED Source: [place] 12:[facility] HNO ID: [id number] Author: Joesph Chery Service: (none) Author Type: Nurse Practitioner Type: Progress Notes Filed: 12/15/2017 1:22 PM Note Text: Telemedicine Visit - Distance Health Virtual Visit Note Patient seen on [employer] platform. Location of patient: [place] History of Present Illness Selene Snowden is a 37 year old year old male who presents with concerns of recurrent sinusitis, nasal drainage and sinus pressure and pain. 11/11 flu like symptoms 11/30 seen at local [facility] walk in clinic and treated with augmentin x10 days LD Tuesday ~describes symptoms gradually improving on Tuesday until he woke /Tue symptoms progressively worsening sinus pressure and drainage bilateral ear pressure, nasal drainage thick -yellow sticky Oral intake: hydration good Tobacco use: No Second hand smoke exposure: No Recent exposure to strep:No Sick contacts:yes MIL +pneumonia uncle +swine flu Recent travel: no OTC meds/remedies that patient has tried: . PAST MEDICAL HISTORY Diagnosis Date - Hiatal hernia 08/14 - Obsessive compulsive disorder - Obstructive sleep apnea - Sleep apnea PAST SURGICAL HISTORY Procedure Laterality Date - COLONOSCOPY 08/14 [place] - normal results - ENDOSCOPY PROC 08/14 [place] FAMILY HISTORY Problem Relation Age of Onset - Psychiatry Father schizoprhenia - Heart Failure Father - Psychiatry Mother - obesity [Other] [OTHER] Mother - Diabetes Mother - Heart Mother atrial fibrillation - Colon Cancer Maternal Grandmother - Diabetes Maternal Grandmother - Cancer Maternal Uncle stomach and throat. - Diabetes Maternal Uncle Current Outpatient Prescriptions: FLUoxetine HCl (PROZAC) 40 mg capsule Take 1 capsule by mouth once daily. fluticasone (FLONASE) 50 mcg/actuation nasal spray Use 1 Alicia in each nostril once daily. lansoprazole (PREVACID) 30 mg capsule Take 1 capsule by mouth once daily. multivitamin tablet Take 1 tablet by mouth once daily. doxycycline hyclate (VIBRAMYCIN) 100 mg capsule Take 1 capsule by mouth twice daily for 7 days. loratadine-pseudoephedrine ER (CLARITIN-D 24 HOUR) 10-240 mg Tb24 Take 1 tablet by mouth once daily as needed ( For allergy symptoms). sucralfate (CARAFATE) 1 gram tablet TAKE 1 TABLET BY MOUTH BEFORE MEALS AND AT BEDTIME CPAP Initiate Auto PAP @ 5-20 cm of water with humidification. Mask (per patient preference) optional chin strap (if indicated) , filters, tubing, humidifier and lifetime supplies. (G47.33) SILVANO (obstructive sleep apnea) ibuprofen (ADVIL) 200 mg tablet Take 200 mg by mouth every 6 hours as needed. Lysine 1,000 mg Tab Take 1 tablet by mouth once daily. No current facility-administered medications for this visit. ALLERGIES No Known Allergies Video Exam (Examination performed via Video enabled technology) General appearance: Alert, oriented, pleasant, in NAD :Yes Ill appearing :Yes Lethargic appearing :No Eyes: Sclera clear :Yes Conjunctiva without erythema :Yes Ears: Tragus / outer ear tenderness by self palpation :No Oropharynx: normal, no erythema Frontal sinus tenderness by self palpation;Yes Maxillary sinus tenderness by self palpation :Yes Tender cervical adenopathy by self palpation :Yes Respiratory distress :No Coughing noted :No Audible wheezing noted :No ASSESSMENT/PLAN: 1. Acute recurrent maxillary sinusitis - ICD9: 461.0, ICD10: J01.01 - Will begin treatment with as per antibiotic as written, see orders - The patient should also be given warm salt water gargles, throat lozenges and/or OTC throat spray as needed and nasal saline gtts and suction prn for the first 5-7 days of treatment. - Supportive care with plenty of fluids, rest, and analgesia prn. - Follow up in 3-5 days if symptoms persist or worsen. - DOXYCYCLINE HYCLATE 100 MG CAPSULE - LORATADINE-PSEUDOEPHEDRINE ER 10 MG-240 MG TABLET,EXTENDED [id number] -Tylenol (generic acetaminophen) 500 mg-2 tabs every 8 hrs. as needed for fever and aches -Mucinex (generic is fine) 1200 mg twice daily to help with cough and to thin out mucus - Red flags discussed for need for in person care - All questions answered Joesph Chery CNP We strongly encourage you to share the following record of today's visit with your primary care provider. This will help in providing you the best care. EXPRESS CARE PATIENT INFO ACUTE SINUSITIS OVERVIEW Rhinosinusitis, or more commonly sinusitis, is the medical term for inflammation (swelling) of the lining of the sinuses and nose. The sinuses are the hollow areas within the facial bones that are connected to the nasal openings. The sinuses are lined with mucous membranes, similar to the inside of the nose. There are two main types of sinusitis: acute and chronic. Acute sinusitis is inflammation that lasts for less than four weeks while chronic sinusitis lasts for more than 12 weeks. Acute sinusitis is common, affecting approximately one million people per year in the [place]. ACUTE SINUSITIS CAUSES The most common cause of acute sinusitis is a viral infection associated with the common cold. Bacterial sinusitis occurs much less commonly, in only 0.5 to 2 percent of cases, usually as a complication of viral sinusitis. Because antibiotics are effective only against bacterial, and not viral, infections, most people do not need antibiotics for acute sinusitis. ACUTE SINUSITIS SYMPTOMS Symptoms of acute sinusitis include: ? Nasal congestion or blockage ? Thick, yellow to green discharge from the nose ? Pain in the teeth ? Pain or pressure in the face that is worse when bending forwards Other acute sinusitis symptoms can include fever (temperature greater than 100.4?F or 38?C), fatigue, cough, difficulty or inability to smell, ear pressure or fullness, headache, and bad breath. In most cases, these symptoms develop over the course of one day and begin to improve within seven to 10 days. DO I NEED TO BE EXAMINED? It is difficult to know if you have a viral or bacterial sinus infection initially. However, most people with a viral infection improve without treatment within seven to 10 days after symptoms begin. Bacterial sinusitis also sometimes improves without treatment, although it can also worsen and require treatment. If one or more of the following bothersome symptoms last more than seven days, an examination by a healthcare provider is recommended: ? Thick, yellow to green discharge from the nose ? Face or tooth pain, especially if it is only on one side ? Tenderness over the maxillary sinuses (located on the left and right side of the nose, inside the cheekbones) ? Symptoms that initially improve and then worsen When to seek immediate help ? If you have one or more of the following symptoms, you should seek medical attention immediately (even if symptoms have been present for less than seven days): ? High fever (>102.5? F or 39.2? C) ? Sudden, severe pain in the face or head ? Double vision or difficulty seeing ? Confusion or difficulty thinking clearly ? Swelling or redness around one or both eyes ? Stiff neck, shortness of breath ACUTE SINUSITIS TREATMENT Initial treatment of a sinus infection aims to relieve symptoms since almost everyone will improve within the first seven to 10 days. Experts recommend avoiding antibiotics during this time unless there is clear evidence of a severe bacterial infection. Initial treatment Pain relief ? Non-prescription pain medications, such as acetaminophen (eg, Tylenol?) or ibuprofen (eg, Motrin?, Advil?) are recommended for pain. Nasal irrigation and saline sprays ? Rinsing the nose with a salt-water (saline) solution is called nasal irrigation or nasal lavage. Saline is also available in a standard nasal spray, although this is not as effective as using larger amounts of water in an irrigation. Nasal irrigation is particularly useful for treating drainage down the back of the throat, sneezing, nasal dryness, and congestion. The treatment helps by rinsing out allergens and irritants from the nose. Saline rinses also clean the nasal lining and can be used before applying sprays containing medications, to get a better effect from the medication. Nasal lavage with warmed saline can be performed as needed, once per day, or twice daily for increased symptoms. Nasal lavage carries few risks when performed correctly. Saline nasal sprays and irrigation kits can be purchased [id number]. Saline mixes can also be purchased or patients can make their own solution. A variety of devices, including bulb syringes, Neti pots, and bottle sprayers, may be used to perform nasal lavage; instructions for nasal lavage are provided in the table. At least 200 mL (about 3/4 cup) of fluid is recommended for each nostril. Nasal decongestants ? Nasal decongestant sprays, including oxymetazoline (Afrin?) and phenylephrine (Willie-synephrine?) can be used to temporarily treat congestion. However, these sprays should not be used for more than two to three days due to the risk of rebound congestion (when the nose is congested constantly unless the medication is used repeatedly). Other treatments ? Other treatments for congestion, such as oral antihistamines (such as diphenhydramine/Benadryl?) or zinc supplements are not proven to improve symptoms of sinusitis and can have unwanted side effects. Medications to thin secretions (such as guaifenesin) may help to clear mucus. Secondline treatment ? If symptoms have not improved in seven to ten days, you should arrange for medical evaluation. You may need further treatment. Nasal glucocorticoids ? Nasal glucocorticoids (steroids delivered by a nasal spray) can help to reduce swelling inside the nose, usually within two to three days. These drugs have few side effects and dramatically relieve symptoms in most people. There are a number of nasal glucocorticoids available by prescription. These drugs are all effective, but differ in how frequently they must be used and how much they cost. You may need to use a nasal decongestant for a few days before starting a nasal glucocorticoid to reduce nasal swelling; this will allow the nasal glucocorticoid to reach more areas of the nasal passages Do I need an antibiotic? ? If bothersome symptoms of sinusitis persist for 10 or more days, it is possible that you have bacterial sinusitis. The need for antibiotics depends upon the severity of your symptoms. Mild symptoms ? There are two possible treatment options if you have mild sinusitis symptoms: treat with antibiotics or continue to watch and wait for one week. Watching and waiting is a reasonable option because up to 75 percent of people with bacterial sinusitis improve within one month without antibiotics. During the watch and wait period, treatments to improve symptoms are recommended. If symptoms worsen or do not improve after watching and waiting, treatment with an antibiotic is usually recommended. Treatments to relieve symptoms are recommended while using antibiotics. Moderate or severe symptoms ? Most healthcare providers will prescribe an antibiotic for moderate to severe symptoms (temperature >38.3? C or 101? F and/or severe pain that interferes with usual activities). Treatments to relieve symptoms are also recommended during antibiotic treatment. One of the least expensive and most effective antibiotics for sinusitis is amoxicillin. An alternate antibiotic will be prescribed if you are allergic to penicillin. Regardless of which antibiotic is prescribed, it is important to follow the dosing instructions carefully and to finish the entire course of treatment. Taking the medication less often than prescribed or stopping the medication early can lead to complications, such as a recurrent infection. What if I do not improve with treatment? ? If you do not improve or worsen after a course of antibiotics, you should be re-examined. In some cases, symptoms of sinusitis improve but then recur. This is usually because the infection was not completely eliminated by the antibiotic. An alternate antibiotic, extended antibiotic treatment, and/or further testing may be recommended, depending upon your individual situation. PROGRESS Observed: 11/30/2017 Status: COMPLETED Source: [place] 1:36 PM [facility] REPOSITORY HNO ID: [id number] Author: Elizabeth Moy) Mindy Service: (none) Author Type: Physician Judo Instructor Type: Progress Notes Filed: 11/30/2017 1:52 PM Note Text: Subjective HPI Pt presents with cough and congestion x 9 days. He has body ache and chills with fevers. He states now the cough and mucous are still there. Pt is not a smoker. No hx of asthma. Review of Systems Constitutional: Positive for chills, fever and malaise/fatigue. HENT: Positive for ear pain and sinus pain. Negative for sore throat. Eyes: Negative. Respiratory: Positive for cough and sputum production. Negative for shortness of breath and wheezing. Cardiovascular: Negative. Gastrointestinal: Negative. Genitourinary: Negative. Musculoskeletal: Negative. Skin: Negative. All other systems reviewed and are negative. PAST MEDICAL HISTORY Diagnosis Date - Hiatal hernia 08/14 - Obsessive compulsive disorder - Obstructive sleep apnea - Sleep apnea Current Outpatient Prescriptions: FLUoxetine HCl (PROZAC) 40 mg capsule Take 1 capsule by mouth once daily. Disp: 90 capsule Rfl: 3 CPAP Initiate Auto PAP @ 5-20 cm of water with humidification. Mask (per patient preference) optional chin strap (if indicated) , filters, tubing, humidifier and lifetime supplies. (G47.33) SILVANO (obstructive sleep apnea) Disp: 1 Device Rfl: 0 fluticasone (FLONASE) 50 mcg/actuation nasal spray Use 1 Alicia in each nostril once daily. Disp: Rfl: 0 lansoprazole (PREVACID) 30 mg capsule Take 1 capsule by mouth once daily. Disp: 30 capsule Rfl: 11 multivitamin tablet Take 1 tablet by mouth once daily. Disp: Rfl: 0 ibuprofen (ADVIL) 200 mg tablet Take 200 mg by mouth every 6 hours as needed. Disp: Rfl: Lysine 1,000 mg Tab Take 1 tablet by mouth once daily. Disp: Rfl: benzonatate (TESSALON PERLES) 100 mg capsule Take 2 capsules by mouth three times daily as needed. Disp: 30 capsule Rfl: 0 predniSONE (DELTASONE) 20 mg tablet Take 1 tablet by mouth twice daily for 5 days. Disp: 10 tablet Rfl: 0 amoxicillin-clavulanic acid (AUGMENTIN) 875-125 mg per tablet Take 1 tablet by mouth twice daily for 10 days. Disp: 20 tablet Rfl: [address] (PROTONIX) 40 mg tablet Take 1 tablet by mouth once daily. Disp: 30 tablet Rfl: 5 sucralfate (CARAFATE) 1 gram tablet TAKE 1 TABLET BY MOUTH BEFORE MEALS AND AT BEDTIME Disp: 120 tablet Rfl: 1 PSEUDOEPHEDRINE HCL (SUDAFED ORAL) Take by mouth. Disp: Rfl: No current facility-administered medications for this visit. PAST SURGICAL HISTORY Procedure Laterality Date - COLONOSCOPY 08/14 [place] - normal results - ENDOSCOPY PROC 08/14 [place] FAMILY HISTORY Problem Relation Age of Onset - Psychiatry Father schizoprhenia - Heart Failure Father - Psychiatry Mother - obesity [Other] [OTHER] Mother - Diabetes Mother - Heart Mother atrial fibrillation - Colon Cancer Maternal Grandmother - Diabetes Maternal Grandmother - Cancer Maternal Uncle stomach and throat. - Diabetes Maternal Uncle Social History Substance Use Topics - Smoking status: Never Smoker - Smokeless tobacco: Never Used - Alcohol use Yes Comment: occassionally BP 120/84 Pulse 88 Temp 36.5 ?C (97.7 ?F) (Tympanic) Resp 16 Wt 111.1 kg (245 lb) SpO2 97% BMI 34.68 kg/m2 Objective Physical Exam Constitutional: He is oriented to person, place, and time and well-developed, well-nourished, and in no distress. HENT: Head: Normocephalic and atraumatic. Right Ear: External ear normal. Left Ear: External ear normal. Nose: Mucosal edema and rhinorrhea present. Right sinus exhibits maxillary sinus tenderness. Left sinus exhibits maxillary sinus tenderness. Mouth/Throat: Uvula is midline, oropharynx is clear and moist and mucous membranes are normal. Neck: Normal range of motion. Neck supple. Cardiovascular: Normal rate, regular rhythm, normal heart sounds and intact distal pulses. Pulmonary/Chest: Effort normal and breath sounds normal. No respiratory distress. He has no wheezes. Abdominal: Soft. Lymphadenopathy: He has no cervical adenopathy. Neurological: He is alert and oriented to person, place, and time. Skin: Skin is warm and dry. Psychiatric: Affect and judgment normal. Nursing note and vitals reviewed. ASSESSMENT/PLAN: 1. Acute non-recurrent sinusitis, unspecified location - ICD9: 461.9, ICD10: J01.90 - Supportive care with plenty of fluids, rest, and analgesia prn. - Discussed that this was likely still viral and to try the prednisone and tessalon first and continue the OTC sudafed. If not improvement in 4-5 days may fill the augmentin. Discussed taking a probiotic supplement or eating yogurt daily while on antibiotics to avoid associated diarrhea. Elizabeth Baptiste PA-C CNOV Observed: 11/30/2017 Status: COMPLETED Source: [place] 1:15 PM [facility] REPOSITORY Office Visit (WSTR) SELENE SNOWDEN ([id number]) 1980 M Date Time Provider Department 11/30/17 1:15 PM ELIZABETH BAPTISTE) WSTR During your visit today, we recorded the following information about you: Temperature Pulse Respiration Blood pressure 97.7 degrees 88/minute 16/minute 120/84 Weight 111.1 kg Elizabeth Baptiste PA-C 11/30/2017 1:52 PM Signed Subjective HPI Pt presents with cough and congestion x 9 days. He has body ache and chills with fevers. He states now the cough and mucous are still there. Pt is not a smoker. No hx of asthma. Review of Systems Constitutional: Positive for chills, fever and malaise/fatigue. HENT: Positive for ear pain and sinus pain. Negative for sore throat. Eyes: Negative. Respiratory: Positive for cough and sputum production. Negative for shortness of breath and wheezing. Cardiovascular: Negative. Gastrointestinal: Negative. Genitourinary: Negative. Musculoskeletal: Negative. Skin: Negative. All other systems reviewed and are negative. PAST MEDICAL HISTORY Diagnosis Date - Hiatal hernia 08/14 - Obsessive compulsive disorder - Obstructive sleep apnea - Sleep apnea Current Outpatient Prescriptions: FLUoxetine HCl (PROZAC) 40 mg capsule Take 1 capsule by mouth once daily. Disp: 90 capsule Rfl: 3 CPAP Initiate Auto PAP @ 5-20 cm of water with humidification. Mask (per patient preference) optional chin strap (if indicated) , filters, tubing, humidifier and lifetime supplies. (G47.33) SILVANO (obstructive sleep apnea) Disp: 1 Device Rfl: 0 fluticasone (FLONASE) 50 mcg/actuation nasal spray Use 1 Alicia in each nostril once daily. Disp: Rfl: 0 lansoprazole (PREVACID) 30 mg capsule Take 1 capsule by mouth once daily. Disp: 30 capsule Rfl: 11 multivitamin tablet Take 1 tablet by mouth once daily. Disp: Rfl: 0 ibuprofen (ADVIL) 200 mg tablet Take 200 mg by mouth every 6 hours as needed. Disp: Rfl: Lysine 1,000 mg Tab Take 1 tablet by mouth once daily. Disp: Rfl: benzonatate (TESSALON PERLES) 100 mg capsule Take 2 capsules by mouth three times daily as needed. Disp: 30 capsule Rfl: 0 predniSONE (DELTASONE) 20 mg tablet Take 1 tablet by mouth twice daily for 5 days. Disp: 10 tablet Rfl: 0 amoxicillin-clavulanic acid (AUGMENTIN) 875-125 mg per tablet Take 1 tablet by mouth twice daily for 10 days. Disp: 20 tablet Rfl: [address] (PROTONIX) 40 mg tablet Take 1 tablet by mouth once daily. Disp: 30 tablet Rfl: 5 sucralfate (CARAFATE) 1 gram tablet TAKE 1 TABLET BY MOUTH BEFORE MEALS AND AT BEDTIME Disp: 120 tablet Rfl: 1 PSEUDOEPHEDRINE HCL (SUDAFED ORAL) Take by mouth. Disp: Rfl: No current facility-administered medications for this visit. PAST SURGICAL HISTORY Procedure Laterality Date - COLONOSCOPY 08/14 [place] - normal results - ENDOSCOPY PROC 08/14 [place] FAMILY HISTORY Problem Relation Age of Onset - Psychiatry Father schizoprhenia - Heart Failure Father - Psychiatry Mother - obesity [Other] [OTHER] Mother - Diabetes Mother - Heart Mother atrial fibrillation - Colon Cancer Maternal Grandmother - Diabetes Maternal Grandmother - Cancer Maternal Uncle stomach and throat. - Diabetes Maternal Uncle Social History Substance Use Topics - Smoking status: Never Smoker - Smokeless tobacco: Never Used - Alcohol use Yes Comment: occassionally BP 120/84 Pulse 88 Temp 36.5 ?C (97.7 ?F) (Tympanic) Resp 16 Wt 111.1 kg (245 lb) SpO2 97% BMI 34.68 kg/m2 Objective Physical Exam Constitutional: He is oriented to person, place, and time and well-developed, well-nourished, and in no distress. HENT: Head: Normocephalic and atraumatic. Right Ear: External ear normal. Left Ear: External ear normal. Nose: Mucosal edema and rhinorrhea present. Right sinus exhibits maxillary sinus tenderness. Left sinus exhibits maxillary sinus tenderness. Mouth/Throat: Uvula is midline, oropharynx is clear and moist and mucous membranes are normal. Neck: Normal range of motion. Neck supple. Cardiovascular: Normal rate, regular rhythm, normal heart sounds and intact distal pulses. Pulmonary/Chest: Effort normal and breath sounds normal. No respiratory distress. He has no wheezes. Abdominal: Soft. Lymphadenopathy: He has no cervical adenopathy. Neurological: He is alert and oriented to person, place, and time. Skin: Skin is warm and dry. Psychiatric: Affect and judgment normal. Nursing note and vitals reviewed. ASSESSMENT/PLAN: 1. Acute non-recurrent sinusitis, unspecified location - ICD9: 461.9, ICD10: J01.90 - Supportive care with plenty of fluids, rest, and analgesia prn. - Discussed that this was likely still viral and to try the prednisone and tessalon first and continue the OTC sudafed. If not improvement in 4-5 days may fill the augmentin. Discussed taking a probiotic supplement or eating yogurt daily while on antibiotics to avoid associated diarrhea. Elizabeth Baptiste PA-C Referring Provider: SELF [[id number]] Allergies As of Date: 11/30/2017 (No Known Allergies) Date Reviewed: 11/30/2017 Reviewed by: Sana Brumfield LPN - Fully Assessed Reason for Visit: chest and sinus congestion, cough [Other] Cmt: x 9 days- did have fever but think that has passed Primary Visit Diagnosis:Acute non-recurrent sinusitis, unspecified location [J01.90] Order(s):benzonatate (TESSALON PERLES) 100 mg capsuleTake 2 capsules by mouth three times daily as needed.Disp: 30 capsuleRfl: 0 predniSONE (DELTASONE) 20 mg tabletTake 1 tablet by mouth twice daily for 5 days.Disp: 10 tabletRfl: 0 amoxicillin-clavulanic acid (AUGMENTIN) 875-125 mg per tabletTake 1 tablet by mouth twice daily for 10 days.Disp: 20 tabletRfl: 0 Prescriptions as of 11/30/2017 Sig: FLUOXETINE 40 MG CAPSULE Take 1 capsule by mouth once * CPAP Initiate Auto PAP @ 5- 20 cm o* FLUTICASONE 50 MCG/ACTUATION * Use 1 Alicia in each nostril o* LANSOPRAZOLE 30 MG CAPSULE,DE* Take 1 capsule by mouth once * MULTIVITAMIN TABLET Take 1 tablet by mouth once d* IBUPROFEN 200 MG TABLET Take 200 mg by mouth every 6 * LYSINE 1,000 MG TABLET Take 1 tablet by mouth once d* BENZONATATE 100 MG CAPSULE Take 2 capsules by mouth thre* PREDNISONE 20 MG TABLET Take 1 tablet by mouth twice * AMOXICILLIN 875 MG-POTASSIUM * Take 1 tablet by mouth twice * PANTOPRAZOLE 40 MG TABLET,DEL* Take 1 tablet by mouth once d* SUCRALFATE 1 GRAM TABLET TAKE 1 TABLET BY MOUTH BEFORE* SUDAFED ORAL Take by mouth. Medication notes this encounter LANSOPRAZOLE 30 MG CAPSULE,DELAYED RELEASE >> Sana Brumfield [employer]M OPERATOR 11/30/2017 1:21 PM >> SANA BRUMFIELD LPN TueNov 30, 2017 1:21 PM Taking PANTOPRAZOLE 40 MG TABLET,DELAYED RELEASE >> Sana Brumfield [facility] 11/30/2017 1:21 PM >> SANA BRUMFIELD LPN TueNov 30, 2017 1:21 PM Not Taking Problem List As Of Date 11/30/2017 Noted Resolved OCD (obsessive compulsive disorder) [F42.9] INVALID FOR* Palpitations [R00.2] INVALID FOR* Chest pain [R07.9] INVALID FOR* More... SILVANO (obstructive sleep apnea) [G47.33] INVALID FOR* Prescriptions ordered this encounter Disp Refills Start End BENZONATATE 100 MG CAPSULE 30 c* 0 11/30/2017 Route: ORAL Sig: Take 2 capsules by mouth three times daily as needed. PREDNISONE 20 MG TABLET 10 t* 0 11/30/2017 12/05/2017 Route: ORAL Sig: Take 1 tablet by mouth twice daily for 5 days. AMOXICILLIN 875 MG-POTASSIUM CLAVULA* 20 t* 0 11/30/2017 12/10/2017 Class: Print RX Route: ORAL Sig: Take 1 tablet by mouth twice daily for 10 days. Encounter Status:Closed by ELIZABETH BAPTISTE PA-C on 11/30/17 OBSOLETE Observed: 10/18/2017 Status: COMPLETED Source: [place] 12:00 AM [facility] REPOSITORY Refill (INTMWS) SELENE SNOWDEN ([id number]) 1980 M Date Time Provider Department 10/18/17 MARIELLA HALL INTMWS During your visit today, we recorded the following information about you: Gissel Roberts Psbenjamín 10/20/2017 9:17 AM Signed Patient has been identified by name and date of : Yes Pending Prescriptions Disp Refills FLUOXETINE 40 MG CAPSULE 90 capsule Sig: Take 1 capsule by mouth once daily. MAXWELL: Yes RX INSTRUCTIONS: Patient is calling to check on the status of his request for the Prozac. He is leaving to go out of town this evening. Patient requesting to pick this up today. Patient aware RX will be sent to pharmacy. No need to notify patient. Thank you, Gissel Roberts Psr KARRIE Hazel, KARRIE 10/20/2017 11:36 AM Signed Current Outpatient Prescriptions: pantoprazole DR (PROTONIX) 40 mg tablet sucralfate (CARAFATE) 1 gram tablet TAKE 1 TABLET BY MOUTH BEFORE MEALS AND AT BEDTIME CPAP Initiate Auto PAP @ 5-20 cm of water with humidification. Mask (per patient preference) optional chin strap (if indicated) , filters, tubing, humidifier and lifetime supplies. (G47.33) SILVANO (obstructive sleep apnea) fluticasone (FLONASE) 50 mcg/actuation nasal spray Use 1 Alicia in each nostril once daily. FLUoxetine HCl (PROZAC) 40 mg capsule Take 1 capsule by mouth once daily. lansoprazole (PREVACID) 30 mg capsule Take 1 capsule by mouth once daily. multivitamin tablet Take 1 tablet by mouth once daily. PSEUDOEPHEDRINE HCL (SUDAFED ORAL) Take by mouth. ibuprofen (ADVIL) 200 mg tablet Take 200 mg by mouth every 6 hours as needed. Lysine 1,000 mg Tab Take 1 tablet by mouth once daily. No current facility-administered medications for this visit. Allergies As of Date: 10/18/2017 (No Known Allergies) Date Reviewed: 09/16/2017 Reviewed by: Stephanie Gil Ma - Fully Assessed Reason for Visit: Refill Request [94] Order(s):FLUoxetine HCl (PROZAC) 40 mg capsuleTake 1 capsule by mouth once daily.Disp: 90 capsuleRfl: 3 Prescriptions as of 10/18/2017 Sig: FLUOXETINE 40 MG CAPSULE Take 1 capsule by mouth once * PANTOPRAZOLE 40 MG TABLET,DEL* SUCRALFATE 1 GRAM TABLET TAKE 1 TABLET BY MOUTH BEFORE* CPAP Initiate Auto PAP @ 5- 20 cm o* FLUTICASONE 50 MCG/ACTUATION * Use 1 Alicia in each nostril o* LANSOPRAZOLE 30 MG CAPSULE,DE* Take 1 capsule by mouth once * MULTIVITAMIN TABLET Take 1 tablet by mouth once d* SUDAFED ORAL Take by mouth. IBUPROFEN 200 MG TABLET Take 200 mg by mouth every 6 * LYSINE 1,000 MG TABLET Take 1 tablet by mouth once d* Problem List As Of Date 10/18/2017 Noted Resolved OCD (obsessive compulsive disorder) [F42.9] INVALID FOR* Palpitations [R00.2] INVALID FOR* Chest pain [R07.9] INVALID FOR* More... SILVANO (obstructive sleep apnea) [G47.33] INVALID FOR* Prescriptions ordered this encounter Disp Refills Start End FLUOXETINE 40 MG CAPSULE 90 c* 3 10/20/2017 Cmt: This prescription was filled on 10/18/2017. Any refills authorized will be placed on file. Sig: Take 1 capsule by mouth once daily. Medications Discontinued During This Encounter FLUoxetine HCl (PROZAC) 40 mg capsule 90 c* 3 10/18/2016 10/20/2017 Route: ORAL Sig: Take 1 capsule by mouth once daily. Disc: Reason for discontinue is not on file. Encounter Status:Closed by RADHA BROWN on 10/20/17 ALLERGIES ALLERGIES DATE TYPE / CODE NAME / CODE REACTION SEVERITY SOURCE Drug NO KNOWN [facility] Class/58671 ALLERGIES [place] 1003(SNOMED Repository CT) ENCOUNTERS ENCOUNTERS ADMIT/DISCHARGE ACCOUNT ADMITTING ENCOUNTER LOCATION SOURCE NUMBER CLASS 09/19/2018/09/19/20 [id number] Ambulatory [address] [place] Repository 09/12/2018/09/13/20 [id number] Ambulatory [place] [facility] [place] Repository 08/28/2018 [id number] Ambulatory [facility] ing:LABSPEC Repository 06/30/2018/06/30/20 [id number] Ambulatory [address] [place] Repository 06/29/2018/07/17/20 [id number] Ambulatory [address] [place] Repository 04/18/2018/04/27/20 [id number] Ambulatory [place] [facility] [place] Rep[place] 03/28/2018/03/29/20 [id number] Ambulatory [address] [place] Repository 03/16/2018/03/17/20 [id number] Ambulatory [address] [place] Rep[place] 12/15/2017/12/17/19 [id number] Ambulatory [address] [place] Rep[place] 11/30/2017/12/02/19 [id number] Ambulatory [address] Repository PAYERS PAYERS ENCOUNTER GUARANTOR PAYER SUBSCRIBER SOURCE 08/28/2018 SELENE Primary SELENE Hood [id number] HEYL Insurance:[employer]Pol ROCKFORDDOB: [facility] Number: [id number] [address]Oij: [phone] [id number] Repository [phone] () Date:[id number] [address] [address]WK: 08/28/2018 Secondary NOT GIVENDAVIE [place] Insurance:SELF PAY [facility] Number: Effective Repository Date:2018-08-28
== END ==
PROVIDERS: Referring Provider Otolaryngology Otolaryngology/Facial Plastic Surgery; Visit Provider Otolaryngology Otolaryngology/Facial Plastic Surgery
DX: J32.9 Chronic sinusitis, unspecified (principal)
CPT/HCPCS: 87070; 87077; 87205

== ENCOUNTER → 2019-01-01 13:28 | Outpatient (CLI) | payer SELFPAY ==
--- NOTE | 2019-01-01 13:46 | CT_ITS ---
STUDY: CT MAXILLOFACIAL SINUSES REASON FOR EXAM: Male, 38 years old. Chronic sinusitis RADIATION DOSAGE (If Supplied By Facility): CTDIvol = ( 33.06 ) mGy, DLP = ( 883.43 ) mGycm TECHNIQUE: The patient was scanned in a multi detector CT scanner. High resolution axial imaging was performed without the administration of intravenous contrast material. Sagittal and coronal images were reconstructed. Individualized dose optimization techniques were used for this CT. COMPARISON: None. FINDINGS: FRONTAL SINUSES: Normal aeration, without mucosal inflammatory disease. ETHMOIDAL SINUSES: There is minimal mucosal thickening of the ethmoid sinuses. MAXILLARY SINUSES: There are small right-sided maxillary mucosal retention cyst measuring up to 1.3 cm. There is a minimal left maxillary mucosal retention cyst measuring 3.9 mm. SPHENOIDAL SINUSES: There is mucosal thickening of the sphenoid sinuses. There is patency of the bilateral maxillary infundibuli with normal uncinate processes, ethmoid bullae, and hiatus semilunaris. Normal bilateral middle turbinates. Normal bilateral inferior turbinates. Normal midline nasal septum. There is patency of the bilateral nasal airways. The visualized osseous structures are normal. The visualized bilateral orbital contents are normal. CT/Sinus/Facial Bone IMPRESSION: Mild pansinusitis. Electronically Signed: Eloisa Coppola MD at 18:59 EDT Tel , Service support ,
== END ==
PROVIDERS: Family Provider Internal Medicine; PCP Internal Medicine; Referring Provider Otolaryngology; Visit Provider Otolaryngology
DX: J32.4 Chronic pansinusitis (principal)
CPT/HCPCS: 70486

== ENCOUNTER → 2019-02-23 16:26 | Outpatient (CLI) | payer OTHER, SELFPAY ==
--- NOTE | 2019-02-23 16:32 | US_ITS ---
STUDY: SCROTUM ULTRASOUND REASON FOR EXAM: Male, 38 years old. Left testicular pain TECHNIQUE: Ultrasound evaluation of the scrotum was performed with color Doppler and static ivy-scale imaging. COMPARISON: None. FINDINGS: RIGHT TESTICLE INTRATESTICULAR: There is a normal size of the right testicle. The right testicle measures 3.6 x 3.1 x 2.1 cm. There is a homogenous echotexture. There is normal arterial and normal venous vascularity. There is no demonstrated right testicular mass or cyst. EXTRATESTICULAR: The epididymis is normal in size. The epididymis head measures 1.3 x 1.9 x 0.7 cm. There is normal vascularity of the epididymis. There is a 4 x 8 x 5 mm epididymal head cyst. There is no demonstrated hydrocele. There is no demonstrated varicocele. There is no demonstrated extratesticular mass or cyst. LEFT TESTICLE INTRATESTICULAR: There is a normal size of the left testicle. The left testicle measures 3.6 x 2.9 x 2.3 cm. There is a homogenous echotexture. There is normal arterial and normal venous vascularity. There is no demonstrated left testicular mass or cyst. EXTRATESTICULAR: The epididymis is normal in size. The epididymis head measures 1.3 x 0.8 x 1.1 cm. There is normal vascularity of the epididymis. There are 2 left epididymal head cysts measuring 2 x 3 x 2 mm and 2 x 3 x 1 mm. There is a small hydrocele. There is no demonstrated varicocele. There is no demonstrated extratesticular mass or cyst. US/Testicular with Arterial Flow IMPRESSION: Small left hydrocele. Bilateral epididymal head cysts. Electronically Signed: Miller Sanchez MD at 16:22 EDT , Service support ,
== END ==
PROVIDERS: Family Provider Internal Medicine; PCP Internal Medicine; Referring Provider Nurse Practitioner Adult Health; Visit Provider Nurse Practitioner Adult Health
DX: N50.812 Left testicular pain (principal)
CPT/HCPCS: 76870; 93976

== ENCOUNTER 2020-05-02 15:44 | Emergency (ER) | payer OTHER, SELFPAY ==
[2020-05-02 15:45] VITALS: BP 145/93; PULSE 67; RESP 16; TEMP 36.4; O2SAT 98; BMI 36.2
[2020-05-02 15:52] VITALS: PULSE 75; RESP 18; O2SAT 98
--- NOTE | 2020-05-02 16:14 | EKG12_ITS ---
Test Reason : PALPS Blood Pressure : / mmHG Vent. Rate : 075 BPM Atrial Rate : 075 BPM P-R Int : 150 ms QRS Dur : 076 ms QT Int : 366 ms P-R-T Axes : 024 -12 000 degrees QTc Int : 408 ms Normal sinus rhythm Normal ECG Confirmed by JJ BENAVIDEZ, KIT ([id number]), editor dictionary KERLINE KU ([id number]) on 05/06/2020 8:42:00 AM Referred By: ANDREW Confirmed By:KIT GARDNER MD
--- NOTE | 2020-05-02 16:20 | NURSING ---
NO OLD EKGS
[2020-05-02 16:31] LABS: Absolute Lymphocyte Count 1.96 X10^3/uL (0.83-4.51); Absolute Neutrophil Count 6.4 X10^3/uL (2.0-7.7); Basophil# 0.03 X10^3/uL; Basophil% 0.3 % (0-1); Eosinophil# 0.12 X10^3/uL; Eosinophils% 1.3 % (0-5); Hematocrit 44.7 % (40-54); Lymphocyte # 1.96 X10^3/ul (4.0); Lymphocyte % 21.7 % (19-41); Mean Corp Hgb Conc 33.6 g/dL (32-36); Mean Corpuscular Volume 86.5 fL (80-94); Mean Platelet Vol. 9.5 fl (6.2-12.0); Monocyte# 0.54 X10^3/uL; NRBC Flagged by Analyzer 0 % (0-5); Neutrophil # 6.35 X10^3/uL (2.7-7.7); Neutrophil % 70.3 % (47-70); Platelet Count 273 K/mm3 (150-450); RBC Distribution Width CV 12.2 % (11.6-14.6); RBC Distribution Width SD 38.4 fl (35.1-43.9); Red Blood Count 5.17 M/mm3 (4.6-6.2)
--- NOTE | 2020-05-02 16:35 | RAD_ITS ---
STUDY: X-RAY CHEST REASON FOR EXAM: Male, 40 years old. PT PRESENTS WITH PALPITATIONS. PT STATES FEELS PRESSURE WHEN PALPITATIONS OCCUR TECHNIQUE: PA and lateral views of the chest. COMPARISON: None. FINDINGS: The lungs are clear and expanded. There is no demonstrated pleural abnormality. Normal size heart. Normal mediastinum and cameron. Normal visualized pulmonary arteries. Normal visualized aortic arch and descending thoracic aorta. Normal visualized thoracic spine. Normal visualized ribs, clavicles, and shoulders. There is no demonstrated abnormality of the visualized soft tissue structures of the upper abdomen. RAD/Chest PA and Lateral IMPRESSION: Normal x-ray examination of the chest. Electronically Signed: Julito Ervin MD at 17:06 EDT , Service support ,
[2020-05-02 16:44] LABS: Anion Gap 5 (5-15); BUN 14 mg/dL (7-18); BUN/Creat Ratio 12.7 RATIO (10-20); Calcium,Total 9.3 mg/dL (8.5-10.1); Chloride 108 mmol/L (98-107); EST Glomerular Filtration Rate 79 mL/min (>60); Est Glom Filt Rate - Afr Amer 95 mL/min (>60); Estimated Creatinine Clearance 95.08 ml/min; Glucose 92 mg/dL (74-106); Potassium 4.3 mmol/L (3.5-5.1); Sodium Level 140 mmol/L (136-145); Thyroid Stim Hormone (TSH) 0.86 uIU/mL (0.358-3.74)
[2020-05-02 16:59] VITALS: PULSE 77; RESP 20; O2SAT 95
--- NOTE | 2020-05-02 17:24 | ED.DCSUM_ITS ---
History of Present Illness Chief Complaint: Palpitations Informant: Patient Onset: Days Timing: Intermittent Narrative: Patient is a 40-year-old male with history of OCD, anxiety and GERD presenting with palpitations. He states he is been having worsening palpitations for the past 2 to 3 days. He states is on and off and happen several times a minute for hours at a time. States he has had palpitations a couple years ago and had a Holter monitor which came back mostly normal. He is currently not having any symptoms. States his symptoms are more significant this afternoon which is why he came to the emergency room. He denies any associated chest pain or shortness of breath. [place] any swelling of his legs. He states when he does have the palpitations he feels a fluttering in his chart and that feels odd in his chest. He notes he does have a history of muscle skeletal chest pain but this feels different. Patient drinks 3 large cups of coffee a day in the morning and then will have either soda or another coffee in the afternoon. He has 4-6 beers a week and denies any drug use. He notes his mother and grandmother have history of A. fib and CHF. He is not sure of his father's family history. He denies any other complaints at this time. Past Medical History - Allergies and Home Meds Allergies/Adverse Reactions: Allergies No Known Allergies Allergy (Verified 05/02/20 15:45) Primary Care Physician: Ayala Hall MD [Primary Care Provider] - Past Medical History: - - OCD, anxiety, GERD Surgical History: no surgical history Smoking Status: Never smoker Alcohol: Occasional Drugs: None Review of Systems General: Denies: Chills, Fever, Sweats Eyes: Denies: Visual changes - bilaterally, Diplopia ENT: Denies: Rhinorrhea, Sore throat Cardiovascular: Reports: Palpitations. Denies: Chest pain Respiratory: Denies: Dyspnea, Cough, Dyspnea on exertion Gastrointestinal: Denies: Abdominal pain, Nausea, Vomiting, Diarrhea, Melena, Hematochezia Genitourinary: Denies: Dysuria, Hematuria, Frequency Musculoskeletal: Denies: Back pain, Extremity Pain Skin: Denies: Rash, Wounds Neurological: Denies: Headache, Weakness, Numbness Physical Exam Vital Signs/Narrative: Vital Signs Temp Pulse Resp BP Pulse Ox 05/02/20 16:59 77 20 H 95 05/02/20 15:52 75 18 98 05/02/20 15:45 97.6 F L 67 16 145/93 H 98 Inital Vital Signs reviewed: Yes General: Well nourished, Well developed, No Acute Distress Head: Normocephalic, Atraumatic Eyes: Perrl, EOMI ENT: Moist mucous membranes, No rhinorrhea Neck: Supple, Nontender Cardiovascular: Regular rate, Regular rhythm, No murmurs Respiratory: No distress, CTA bilaterally, Chest nontender Abdomen: Soft, Nontender, Nondistended, Normal bowel sounds Back: Nontender, Normal Inspection Extremities: Nontender, No edema Skin: Normal color, No rash Neurological: Alert, Oriented x3, Cranial nerves II-XII grossly intact, Normal Strength, Normal Sensation Psychological: Normal affect, Normal Mood Diagnostic/Tx/Re-eval Chest X-Ray - ED: 2 View, Read by ED Physician, Read by Radiologist, No Acute Disease Clinical Impression(s) from Imaging Studies Chest X-Ray 05/02/20 16:35 IMPRESSION: Normal x-ray examination of the chest. Electronically Signed: Julito Ervin MD at 17:06 EDT , Service support , Laboratory Data 05/02/20 05/02/20 16:00 16:00 WBC 9.0 RBC 5.17 Hgb 15.0 Hct 44.7 MCV 86.5 MCH 29.0 MCHC 33.6 RDW Std Deviation 38.4 RDW Coeff of Isabel 12.2 Plt Count 273 MPV 9.5 Immature Gran % (Auto) 0.400 Neut % (Auto) 70.3 H Lymph % (Auto) 21.7 [place] % (Auto) 6.0 Eos % (Auto) 1.3 Baso % (Auto) 0.3 Absolute Neuts (auto) 6.4 Absolute Lymphs (auto) 1.96 Nucleated RBC % 0 Sodium 140 Potassium 4.3 Chloride 108 H Carbon Dioxide 27.0 Anion Gap 5 BUN 14 Creatinine 1.10 Estim Creat Clear Calc 95.08 Est GFR (MDRD) Af Amer 95 Est GFR (MDRD) Non-Af 79 BUN/Creatinine Ratio 12.7 Glucose 92 Calcium 9.3 Troponin I < 0.015 TSH 0.86 - Rhythm Strip Rhythm Strip: Sinus Rhythm Rate: 75 Ectopy: PVC(s) - EKG Initial EKG Interpretation: Sinus Rhythm, - - Sinus rhythm at a rate of 75 Normal axis Normal intervals Normal ST segments No findings consistent with ACS - Medical Decision Making Evaluated for episodes of palpitations. He does have a couple of PVCs on telemetry while talking to them. He states he is feeling those. I suspect that is what is contributing to his palpitations. He denies associated chest pain or shortness of breath. He is low risk by PE RC criteria I do not think a d-dimer is indicated as I do not suspect a PE. TSH, CBC, BMP, urinalysis and opponent are all unremarkable. I believe patient stable for outpatient follow-up. He will follow-up with his PCP as he likely needs another Holter monitor. He is encouraged to limit his caffeine intake. Patient is counseled on signs and symptoms requiring return to the emergency room. Patient verbalizes agreement and understand this plan. Patient discharged home in stable and improved condition. ED Disposition - Plan for ED Patient: Disposition: Home or Assisted Living Diagnosis: Palpitations with regular cardiac rhythm, PVC (premature ventricular contraction) Instructions: Premature Ventricular Contractions, ED Palpitations Referrals: Ayala Hall MD [Primary Care Provider] - Additional Instructions: Please limit your caffeine intake. Follow-up with your primary care doctor for further evaluation of these palpitations.
[2020-05-02 17:26] VITALS: BP 128/75; PULSE 102; RESP 24; O2SAT 97
[2020-05-02 18:13] VITALS: PULSE 74; RESP 17; O2SAT 98
== END 2020-05-02 18:14 | disposition home or self-care (01) ==
PROVIDERS: Emergency Provider Emergency Medicine; PCP Internal Medicine
DX: I49.3 Ventricular premature depolarization (principal); K21.9 Gastro-esophageal reflux disease without esophagitis; F41.9 Anxiety disorder, unspecified; F42.9 Obsessive-compulsive disorder, unspecified; Z82.49 Family history of ischemic heart disease and other diseases of the circulatory system
CPT/HCPCS: 71046; 80048; 84443; 84484; 85025; 93005; 99284; A4216

== ENCOUNTER → 2020-12-29 | Outpatient (CLI) | payer OTHER, SELFPAY | END | disposition home or self-care (01) | PROVIDERS: PCP Internal Medicine; Referring Provider Otolaryngology; Visit Provider Otolaryngology | DX: J32.9 Chronic sinusitis, unspecified (principal) | CPT/HCPCS: 87070; 87077; 87186; 87205 ==

== ENCOUNTER → 2021-02-14 | Outpatient (CLI) | payer OTHER, SELFPAY | END | disposition home or self-care (01) | LOC: LABSPEC 08:54 | PROVIDERS: PCP Internal Medicine; Referring Provider Otolaryngology Otolaryngology/Facial Plastic Surgery; Visit Provider Otolaryngology Otolaryngology/Facial Plastic Surgery | DX: J32.9 Chronic sinusitis, unspecified (principal) | CPT/HCPCS: 87070; 87077; 87186; 87205 ==